=== PATIENT | male | born 1965 ===

== ENCOUNTER 2022-06-27 13:47 | Emergency (ER) | payer MEDICAID, SELFPAY ==
[2022-06-27 14:05] VITALS: BP 144/92; PULSE 82; RESP 18; TEMP 36.7; O2SAT 94; BMI 33.0
--- NOTE | 2022-06-27 14:06 | ED.DIZZY ---
HPI - Dizziness General Chief Complaint: General Medical Stated Complaint: Dizziness x1 week Time Seen by Provider: 06/27/22 17:47 Related Data Previous Rx's Medication Instructions Recorded blood-glucose meter #1 ea 06/27/22 metformin 500 mg tablet 500 mg PO BIDWMEAL #60 tabs 06/27/22 Allergies Allergy/AdvReac Type Severity Reaction Status Date / Time No Known Allergies Allergy Unverified 04/10/20 15:35 [No Known Allergies*] [facility] Social History Social History Advance Directives: No Advance Directives Information Provided: No Physical Exam Vital Signs: Vital Signs: Last Vital Signs Temp 98.3 F 06/27/22 19:30 Pulse 65 06/27/22 19:30 Resp 16 06/27/22 19:30 BP 153/97 H 06/27/22 19:30 Pulse Ox 96 06/27/22 19:30 O2 Del Method 06/27/22 19:30 BMI result Body Mass Index 33.0 Course Course Course Narrative: This is a rapid medical exam. Deferred additional HPI, ROS, PE to primary provider. 56 yo male healthy here with one month of dizziness when position changes, urinating frequently, drinking alot of juice. No focal neuro deficits. VSS. POC 420 in triage. No history of DM. Will need labs, EKG, UA. Medications Administered Discontinued Medications Generic Name Dose Route Start Last Admin Trade Name Rafaelq PRN Reason Stop Dose Admin Sodium Chloride 1,000 mls @ 999 mls/hr 06/27/22 17:35 06/27/22 18:58 Ns IV 06/27/22 18:35 Infused .Q1H1M STA Infusion Sodium Chloride 1,000 mls @ 999 mls/hr 06/27/22 17:48 06/27/22 18:58 Ns IV 06/27/22 18:48 999 mls/hr .Q1H1M ONE Administration Insulin Human Lispro 10 unit 06/27/22 17:48 06/27/22 18:58 Insulin Lispro 100 Unit/Ml 3 Ml Vial SUBCUT 06/27/22 17:49 10 unit ONCE ONE Administration Metformin HCl 500 mg 06/27/22 20:14 06/27/22 20:42 Metformin Hcl 500 Mg Tablet PO 06/27/22 20:15 500 mg ONCE ONE Administration MDM - Dizziness Lab Data Result diagrams: 06/27/22 14:28 06/27/22 14:28 Labs: Lab Results 06/27/22 06/27/22 06/27/22 Range/Units 14:09 14:28 14:28 WBC 8.5 (4.8-10.8) X10*3/uL RBC 5.55 (4.60-5.80) X10*6/uL Hgb 16.1 (14.0-18.0) g/dl Hct 45.3 (42.0-52.0) % MCV 81.6 (80.0-98.0) fL MCH 29.0 (27.0-33.0) pg MCHC 35.5 (31.0-36.0) g/dl RDW 11.4 (11.0-16.0) % Plt Count 329 (160-400) X10*3/uL MPV 10.8 (9.4-12.4) fL Immature Gran % (Auto) 0.1 (0.0-0.4) % Neut % (Auto) 49.5 (45-73) % Lymph % (Auto) 40.4 H (20-40) % [place] % (Auto) 7.3 (2-11) % Eos % (Auto) 1.9 (0-4) % Baso % (Auto) 0.8 (0-2) % Lymph # (Auto) 3.4 (1.2-4.9) X10*3/uL [place] # (Auto) 0.6 (0.1-1.2) X10*3/uL Eos # (Auto) 0.2 (0.0-0.4) X10*3/uL Baso # (Auto) 0.1 (0.0-0.2) X10*3/uL Abs Immat Gran (auto) 0.01 (0.00-0.03) X10*3/uL Absolute Neuts (auto) 4.2 (2.0-8.3) x10*3/uL Absolute Nucleated RBC 0.000 (0.0-0.012) X10*3/uL Nucleated RBC % (auto) 0.0 (0.0-0.2) /100WBC VBG pH (7.32-7.43) VBG pCO2 mmHg VBG pO2 mmHg VBG HCO3 (22-26) mmol/L VBG O2 Saturation % VBG Base Excess mmol/L Sodium 128 L (135-145) mmol/L Potassium 4.7 (3.3-5.1) mmol/L Chloride 98 (96-108) mmol/L Carbon Dioxide 24 (22-29) mmol/L Anion Gap 11 L (12-20) BUN 18 H (9-16) mg/dL Creatinine 1.10 (0.5-1.4) mg/dL Estim Creat Clear Calc 89.6 Estimated GFR > 60 POC Glucose 420 H* (60-115) mg/dL Random Glucose 405 H* (60-115) mg/dL Calcium 9.9 (8.4-10.2) mg/dL Magnesium 1.8 (1.6-2.6) mg/dL Total Bilirubin 0.7 (0.0-1.0) mg/dL Direct Bilirubin 0.2 (0.0-0.5) mg/dL AST 10 (5-37) U/L ALT 22 (0-40) U/L Alkaline Phosphatase 121 H (39-117) U/L Troponin I High Sens (<3.5-35.0) ng/L Total Protein 7.4 (6.5-8.0) g/dL Albumin 4.2 (3.5-5.0) g/dL Acetone, Qual (Negative) COVID-19 (ERNESITNE) (Negative) COVID-19 Clin Com 06/27/22 06/27/22 06/27/22 Range/Units 14:28 14:28 14:28 WBC (4.8-10.8) X10*3/uL RBC (4.60-5.80) X10*6/uL Hgb (14.0-18.0) g/dl Hct (42.0-52.0) % MCV (80.0-98.0) fL MCH (27.0-33.0) pg MCHC (31.0-36.0) g/dl RDW (11.0-16.0) % Plt Count (160-400) X10*3/uL MPV (9.4-12.4) fL Immature Gran % (Auto) (0.0-0.4) % Neut % (Auto) (45-73) % Lymph % (Auto) (20-40) % [place] % (Auto) (2-11) % Eos % (Auto) (0-4) % Baso % (Auto) (0-2) % Lymph # (Auto) (1.2-4.9) X10*3/uL [place] # (Auto) (0.1-1.2) X10*3/uL Eos # (Auto) (0.0-0.4) X10*3/uL Baso # (Auto) (0.0-0.2) X10*3/uL Abs Immat Gran (auto) (0.00-0.03) X10*3/uL Absolute Neuts (auto) (2.0-8.3) x10*3/uL Absolute Nucleated RBC (0.0-0.012) X10*3/uL Nucleated RBC % (auto) (0.0-0.2) /100WBC VBG pH (7.32-7.43) VBG pCO2 mmHg VBG pO2 mmHg VBG HCO3 (22-26) mmol/L VBG O2 Saturation % VBG Base Excess mmol/L Sodium (135-145) mmol/L Potassium (3.3-5.1) mmol/L Chloride (96-108) mmol/L Carbon Dioxide (22-29) mmol/L Anion Gap (12-20) BUN (9-16) mg/dL Creatinine (0.5-1.4) mg/dL Estim Creat Clear Calc Estimated GFR POC Glucose (60-115) mg/dL Random Glucose (60-115) mg/dL Calcium (8.4-10.2) mg/dL Magnesium (1.6-2.6) mg/dL Total Bilirubin (0.0-1.0) mg/dL Direct Bilirubin (0.0-0.5) mg/dL AST (5-37) U/L ALT (0-40) U/L Alkaline Phosphatase (39-117) U/L Troponin I High Sens < 3.5 (<3.5-35.0) ng/L Total Protein (6.5-8.0) g/dL Albumin (3.5-5.0) g/dL Acetone, Qual Negative (Negative) COVID-19 (ERNESTINE) Negative (Negative) COVID-19 Clin Com See Note 06/27/22 06/27/2206/27/22 Range/Units 14:33 17:20 17:50 WBC (4.8-10.8) X10*3/uL RBC (4.60-5.80) X10*6/uL Hgb (14.0-18.0) g/dl Hct (42.0-52.0) % MCV (80.0-98.0) fL MCH (27.0-33.0) pg MCHC (31.0-36.0) g/dl RDW (11.0-16.0) % Plt Count (160-400) X10*3/uL MPV (9.4-12.4) fL Immature Gran % (Auto) (0.0-0.4) % Neut % (Auto) (45-73) % Lymph % (Auto) (20-40) % [place] % (Auto) (2-11) % Eos % (Auto) (0-4) % Baso % (Auto) (0-2) % Lymph # (Auto) (1.2-4.9) X10*3/uL [place] # (Auto) (0.1-1.2) X10*3/uL Eos # (Auto) (0.0-0.4) X10*3/uL Baso # (Auto) (0.0-0.2) X10*3/uL Abs Immat Gran (auto) (0.00-0.03) X10*3/uL Absolute Neuts (auto) (2.0-8.3) x10*3/uL Absolute Nucleated RBC (0.0-0.012) X10*3/uL Nucleated RBC % (auto) (0.0-0.2) /100WBC VBG pH 7.49 H (7.32-7.43) VBG pCO2 31 mmHg VBG pO2 92 mmHg VBG HCO3 23 (22-26) mmol/L VBG O2 Saturation 98.0 % VBG Base Excess 1.4 mmol/L Sodium (135-145) mmol/L Potassium (3.3-5.1) mmol/L Chloride (96-108) mmol/L Carbon Dioxide (22-29) mmol/L Anion Gap (12-20) BUN (9-16) mg/dL Creatinine (0.5-1.4) mg/dL Estim Creat Clear Calc Estimated GFR POC Glucose 321 H 308 H (60-115) mg/dL Random Glucose (60-115) mg/dL Calcium (8.4-10.2) mg/dL Magnesium (1.6-2.6) mg/dL Total Bilirubin (0.0-1.0) mg/dL Direct Bilirubin (0.0-0.5) mg/dL AST (5-37) U/L ALT (0-40) U/L Alkaline Phosphatase (39-117) U/L Troponin I High Sens (<3.5-35.0) ng/L Total Protein (6.5-8.0) g/dL Albumin (3.5-5.0) g/dL Acetone, Qual (Negative) COVID-19 (ERNESTINE) (Negative) COVID-19 Clin Com 06/27/22 Range/Units 19:25 WBC (4.8-10.8) X10*3/uL RBC (4.60-5.80) X10*6/uL Hgb (14.0-18.0) g/dl Hct (42.0-52.0) % MCV (80.0-98.0) fL MCH (27.0-33.0) pg MCHC (31.0-36.0) g/dl RDW (11.0-16.0) % Plt Count (160-400) X10*3/uL MPV (9.4-12.4) fL Immature Gran % (Auto) (0.0-0.4) % Neut % (Auto) (45-73) % Lymph % (Auto) (20-40) % [place] % (Auto) (2-11) % Eos % (Auto) (0-4) % Baso % (Auto) (0-2) % Lymph # (Auto) (1.2-4.9) X10*3/uL [place] # (Auto) (0.1-1.2) X10*3/uL Eos # (Auto) (0.0-0.4) X10*3/uL Baso # (Auto) (0.0-0.2) X10*3/uL Abs Immat Gran (auto) (0.00-0.03) X10*3/uL Absolute Neuts (auto) (2.0-8.3) x10*3/uL Absolute Nucleated RBC (0.0-0.012) X10*3/uL Nucleated RBC % (auto) (0.0-0.2) /100WBC VBG pH (7.32-7.43) VBG pCO2 mmHg VBG pO2 mmHg VBG HCO3 (22-26) mmol/L VBG O2 Saturation % VBG Base Excess mmol/L Sodium (135-145) mmol/L Potassium (3.3-5.1) mmol/L Chloride (96-108) mmol/L Carbon Dioxide (22-29) mmol/L Anion Gap (12-20) BUN (9-16) mg/dL Creatinine (0.5-1.4) mg/dL Estim Creat Clear Calc Estimated GFR POC Glucose 263 H (60-115) mg/dL Random Glucose (60-115) mg/dL Calcium (8.4-10.2) mg/dL Magnesium (1.6-2.6) mg/dL Total Bilirubin (0.0-1.0) mg/dL Direct Bilirubin (0.0-0.5) mg/dL AST (5-37) U/L ALT (0-40) U/L Alkaline Phosphatase (39-117) U/L Troponin I High Sens (<3.5-35.0) ng/L Total Protein (6.5-8.0) g/dL Albumin (3.5-5.0) g/dL Acetone, Qual (Negative) COVID-19 (ERNESTINE) (Negative) COVID-19 Clin Com Discharge Plan Discharge Clinical Impression: Diabetes mellitus, new onset Patient Disposition: Home, Self-Care Instructions: Type 2 Diabetes in Adults: New Diagnosis (ED) Additional Instructions: Drink plenty of fluids Take medication as prescribed for diabetes Follow-up with PCP/biomedical engineering aide for diabetes management Check blood sugar at least twice daily it should be less than 200 See PCP/come to ED if blood sugar persistently high Prescriptions: New metformin 500 mg tablet 500 mg PO BIDWMEAL Qty: 60 0RF (DME) blood-glucose meter Kit See Rx Instructions .Route Qty: 1 0RF Rx Instructions: As directed Referrals: Ángel Cosme MD [Physician] - 1 week Kerri Rojas MD [Physician] - 1 week Interventions: ED Discharge Assessment Last Done: 06/27/22 20:44 Discharge Date/Time: 06/27/22 20:47
--- NOTE | 2022-06-27 14:08 | ECG_ITS ---
Test Reason : DIZZINESS Blood Pressure : / mmHG Vent. Rate : 081 BPM Atrial Rate : 081 BPM P-R Int : 136 ms QRS Dur : 072 ms QT Int : 362 ms P-R-T Axes : 057 041 065 degrees QTc Int : 420 ms Normal sinus rhythm Normal ECG No previous ECGs available Referred By: Marilyn Bahena Electronically Signed By:JOSHUA ZHU MD
[2022-06-27 14:15] LABS: Glucose, Whole Blood 420 mg/dL (60-115)
[2022-06-27 14:33] LABS: MANUAL DIFF FLAG NO
[2022-06-27 14:39] LABS: VBG Base Excess 1.4 mmol/L; VBG HCO3 23 mmol/L (22-26); VBG pCO2 31 mmHg; VBG pH 7.49 (7.32-7.43); VBG pO2 92 mmHg
[2022-06-27 14:39] LABS: Basophils Absolute Auto 0.1 X10*3/uL (0.0-0.2); Basophils Percent Auto 0.8 % (0-2); Eosinophils Absolute Auto 0.2 X10*3/uL (0.0-0.4); Eosinophils Percent Auto 1.9 % (0-4); Hematocrit 45.3 % (42.0-52.0); Hemoglobin 16.1 g/dl (14.0-18.0); Imm Gran Abs Auto 0.01 X10*3/uL (0.00-0.03); Imm Gran Pct Auto 0.1 % (0.0-0.4); Lymphocytes Absolute Auto 3.4 X10*3/uL (1.2-4.9); Lymphocytes Percent Auto 40.4 % (20-40); Mean Corpuscular HGB Conc 35.5 g/dl (31.0-36.0); Mean Corpuscular Volume 81.6 fL (80.0-98.0); Mean Platelet Volume 10.8 fL (9.4-12.4); Monocytes Absolute Auto 0.6 X10*3/uL (0.1-1.2); Monocytes Percent Auto 7.3 % (2-11); Neutrophils Absolute Auto 4.2 x10*3/uL (2.0-8.3); Neutrophils Percent Auto 49.5 % (45-73); Platelet Count 329 X10*3/uL (160-400); Red Blood Count 5.55 X10*6/uL (4.60-5.80); Red Cell Distribution Width 11.4 % (11.0-16.0); White Blood Count 8.5 X10*3/uL (4.8-10.8)
[2022-06-27 14:39] LABS: Venous Blood Gas Refer to POC result
[2022-06-27 14:49] LABS: IDNOW Serial# 16C4AD1C
[2022-06-27 14:50] LABS: COVID-19 Test Negative (Negative)
[2022-06-27 15:03] LABS: Acetone, serum QL Negative (Negative)
[2022-06-27 15:09] LABS: Alanine Aminotransferase 22 U/L (0-40); Albumin Level 4.2 g/dL (3.5-5.0); Alkaline Phosphatase 121 U/L (39-117); Anion Gap 11 (12-20); Aspartate Amino Transferase 10 U/L (5-37); Bilirubin Direct 0.2 mg/dL (0.0-0.5); Bilirubin Total 0.7 mg/dL (0.0-1.0); Blood Urea Nitrogen 18 mg/dL (9-16); Calcium 9.9 mg/dL (8.4-10.2); Carbon Dioxide 24 mmol/L (22-29); Chloride 98 mmol/L (96-108); Creatinine Clr Calc Pharmacy 89.6; Estimated Glomerular Filt Rate > 60; Glucose Random 405 mg/dL (60-115); Magnesium 1.8 mg/dL (1.6-2.6); Potassium 4.7 mmol/L (3.3-5.1); Sodium 128 mmol/L (135-145); Total Protein 7.4 g/dL (6.5-8.0)
[2022-06-27 16:21] LABS: Troponin-I High Sensitivity < 3.5 ng/L (<3.5-35.0)
[2022-06-27 17:17] VITALS: BP 127/90; PULSE 75; RESP 18; TEMP 36.1; O2SAT 100
[2022-06-27 17:24] LABS: Glucose, Whole Blood 321 mg/dL (60-115)
[2022-06-27] MEDS: 0.9 % Sodium Chloride 1,000 ML 999 ML IV ×2 (17:43→18:58)
[2022-06-27 17:54] LABS: Glucose, Whole Blood 308 mg/dL (60-115)
[2022-06-27] MEDS: Insulin Lispro 100 UNIT/ML 3 ML VIAL 10 UNIT SUBCUT (18:58)
[2022-06-27 19:30] VITALS: BP 153/97; PULSE 65; RESP 16; TEMP 36.8; O2SAT 96
[2022-06-27 19:40] LABS: Glucose, Whole Blood 263 mg/dL (60-115)
[2022-06-27] MEDS: metFORMIN HCl 500 MG TABLET PO (20:42)
== END 2022-06-27 20:47 | disposition home or self-care (01) ==
PROVIDERS: Nurse Practitioner Family; Emergency Provider Internal Medicine
DX: R42 Dizziness and giddiness (principal); E11.9 Type 2 diabetes mellitus without complications; Z20.822 Contact with and (suspected) exposure to COVID-19; Z79.899 Other long term (current) drug therapy
CPT/HCPCS: 36415; 80048; 80076; 82009; 82803; 82947; 83735; 84484; 85025; 87635; 93005; 96360; 99284

== ENCOUNTER 2022-08-06 04:30 | Emergency (ER) | payer MEDICAID, SELFPAY ==
--- NOTE | ~2022-08-06 | XR_ITS ---
EXAMINATION: XR SHOULDER, RIGHT CLINICAL INFORMATION: Pain COMPARISON: None TECHNIQUE: Four views of the right shoulder. FINDINGS: No fracture or dislocation. The glenohumeral joint is well aligned. Mild narrowing of the joint space with small osteophytes. The acromioclavicular joint is well aligned with moderate hypertrophic degenerative change. The visualized lung is clear. The visualized ribs are intact. XR/XR shoulder RT min 2V IMPRESSION: Mild to moderate degenerative changes of the right shoulder.
[2022-08-06 04:37] VITALS: BP 150/97; PULSE 102; RESP 16; TEMP 37; O2SAT 94; BMI 35.9
[2022-08-06 04:47] VITALS: BP 159/100; PULSE 87; RESP 16; TEMP 37.2; O2SAT 97
--- NOTE | 2022-08-06 04:48 | ECG_ITS ---
Test Reason : EXTREMITY PAIN Blood Pressure : / mmHG Vent. Rate : 091 BPM Atrial Rate : 091 BPM P-R Int : 140 ms QRS Dur : 068 ms QT Int : 354 ms P-R-T Axes : 036 009 058 degrees QTc Int : 435 ms Normal sinus rhythm Normal ECG When compared with ECG of 27-JUN-2022 14:16, No significant change was found Referred By: More Hui Electronically Signed By:Fred Magaña
--- NOTE | 2022-08-06 04:51 | ED.EXTPRO ---
HPI - Extremity Problem General Chief complaint: Extremity Problem Stated complaint: R Shoulder pain Time Seen by Provider: 08/06/22 04:35 History of Present Illness HPI Narrative: Patient is a 56-year-old male presents today with having right shoulder pain. The shoulder pain happened this morning. Patient woke up had the pain. There is no trauma. The pain is specially worse with movement of the right shoulder. No pain on movement of the left shoulder. There is no shortness of breath there is no diaphoresis. Patient claims he is borderline diabetic. No history of hypertension, high cholesterol, smoking, CA. No history of blood clots no leg swelling. The pain is sharp. He did not take any medication for the pain. He is from home. No travel history. Some blood thinners Related Data Previous Rx's Medication Instructions Recorded blood-glucose meter #1 ea 06/27/22 metformin 500 mg tablet 500 mg PO BIDWMEAL #60 tabs 06/27/22 Allergies Allergy/AdvReac Type Severity Reaction Status Date / Time No Known Allergies Allergy Verified 08/06/22 04:37 [No Known Allergies*] Review of Systems Review of Systems: Positive right shoulder pain PMFSH Past Medical History Attestation statement: The following information was validated with the patient. Social History Social History Advance Directives: No Advance Directives Information Provided: Yes Physical Exam Vital Signs: Vital Signs: Last Vital Signs Temp 98.9 F 08/06/22 04:47 Pulse 90 08/06/22 05:30 Resp 16 08/06/22 05:30 BP 140/92 H 08/06/22 05:30 Pulse Ox 97 08/06/22 04:47 O2 Del Method 08/06/22 04:47 BMI result Body Mass Index 35.9 Appearance: Alert. Oriented X3. No acute distress. Eyes: Pupils equal, round and reactive to light. ENT: Pharynx normal. Neck: Normal inspection. Neck supple. No lymph nodes noted. No crepitus CVS: Normal heart rate and rhythm. Pulses normal. Normal S1 and S2 Respiratory: No respiratory distress. Breath sounds normal. No Wheezing. No rales Abdomen: Soft and nontender. No rigidity. No distention. good BS x4 Skin: Skin warm and dry. Normal skin color. Normal skin turgor. Extremities: No lower extremity edema. Neurovascular intact to all extremities. No Lacerations. There is no deformities noted in the right shoulder. Movement distally at the wrist at the elbow at the hands are all intact skin is intact. Examination of the shoulder showed sensation over the axillary nerve intact movement of the shoulder both abduction adduction causes slight pain. Patient is still able to move it. Movement reproduces the symptoms. Neuro: Oriented X 3. No motor deficit. No sensory deficit. Moving all extermities. No slurred speech Medical Decision Making Differential Diagnosis Fracture, sprain, musculoskeletal causes of shoulder pain., cardiac causes of shoulder pain. We will go ahead and get an EKG. Patient's history knots anonymous with ACS. No history of hypertension high cholesterol, smoking, mi. Positive history of diabetes. Patient's pain is atypical for ACS. It is sharp. Unlikely this is secondary to CAD. History not consistent with pulmonary emboli. Patient's x-ray showed no evidence of fracture. Consistent with having degenerative joint disease. Likely the cause of patient's pain. Patient's sugar however was elevated at 360. Will have patient closely follow-up with his physician. Patient is asymptomatic from the sugar. Blood pressure is elevated. Patient is due for his morning medications. He is in stable condition. Lab Data MDM Lab Attestation statement: I reviewed the patient's lab results. Labs: Lab Results 08/06/22 Range/Units 05:18 POC Glucose 362 H* (60-115) mg/dL Independent Interpretation I performed an independent interpretation of an: EKG Interpretation: Patient's EKG showed a sinus pattern heart rate is 90 CO QRS QT within normal limits is no acute ST segment elevation. Not consistent with ACS. Discharge Plan Discharge Clinical Impression: Diabetes mellitus, Acute hyperglycemia Patient Disposition: Home, Self-Care Instructions: Diabetic Hyperglycemia (ED), Arthritis (ED), Diabetes and Nutrition (ED), Type 2 Diabetes Management for Adults (ED) Prescriptions: No Action metformin 500 mg tablet 500 mg PO BIDWMEAL Qty: 60 0RF (DME) blood-glucose meter Kit See Rx Instructions .Route Qty: 1 0RF Rx Instructions: As directed Referrals: Physician,None [Primary Care Provider] - 2 days
[2022-08-06 05:23] LABS: Glucose, Whole Blood 362 mg/dL (60-115)
[2022-08-06 05:30] VITALS: BP 140/92; PULSE 90; RESP 16
--- OUTSIDE RECORDS SUMMARY | 2022-08-06 05:30 | XMS_ITS | Continuity of Care Document ---
:1965 Author Organization [address], [address] [place] [address]- Care Team Providers Name Role Phone Not on Staff, PCP Primary Care Physician Unavailable Encounter [facility] [place] Date(s): 08/14/21 - 09/13/[address], [address] [place], [place] [address] Allergies, Adverse Reactions, Alerts No Known Allergies Medications Zofran ODT 4 mg oral tablet, disintegrating 1 tablet = 4 mg, By Mouth, Every 8 hours, PRN Nausea & Vomiting, # 10 tablet, 0 Refills, Maintenance, 10/01/19 18:13:00 EDT, Tablet, [id number], 104.3, kg, 10/01/19 17:01:00 EDT, Dry Weight Start Date: 10/01/19 Status: Ordered
--- OUTSIDE RECORDS SUMMARY | 2022-08-06 05:30 | XMS_ITS | Continuity of Care Document ---
:1965 Author Organization [facility] Address [address] [place] [address]- Care Team Providers Name Role Phone Not on Staff, PCP Primary Care Physician Unavailable Encounter [facility] [place] Date(s): 10/01/19 - 10/01/19 [facility] [address] [place] [id number] [facility] Encounter Diagnosis Vomiting and diarrhea (Final) - 10/01/19 Discharge Disposition: A-D/C Home Attending Physician: Jamel Ramires MD Admitting Physician: Jamel Ramires MD Referring Physician: Not on Staff, Referring MD Allergies, Adverse Reactions, Alerts Substance Reaction Severity Status NKA Active Medications Zofran ODT 4 mg oral tablet, disintegrating 1 tablet = 4 mg, By Mouth, Every 8 hours, PRN Nausea & Vomiting, # 10 tablet, 0 Refills, Maintenance, 10/01/19 18:13:00 EDT, Tablet, [id number], 104.3, kg, 10/01/19 17:01:00 EDT, Dry Weight Start Date: 10/01/19 Status: Ordered Vital Signs Most recent to oldest [Reference 1 2 3 Range]: Weight 104.3 kg 104.3 kg 104.3 kg (10/01/19 5:01 PM) (10/01/19 1:59 PM) (10/01/19 1:55 P M) Oxygen Saturation [94-100 %] 99 % 95 % 97 % (10/01/19 5:01 PM) (10/01/19 1:55 PM) (10/01/19 1:51 P M) Pulse Rate [55-90 bpm] 95 bpm 101 bpm 114 bpm *H* *H* *H* (10/01/19 5:01 PM) (10/01/19 1:55 PM) (10/01/19 1:51 P M) Blood Pressure [90-138/55-84 mm 152/86 mm Hg 151/101 mm Hg Hg] *H* *H* (10/01/19 5:01 PM) (10/01/19 1:55 PM) Respiratory Rate [16-30 br/min] 16 br/min 18 br/min (10/01/19 5:01 PM) (10/01/19 1:55 PM) Temperature [96.8-100.4 DegF] 98.9 DegF 98.4 DegF (10/01/19 5:01 PM) (10/01/19 1:55 PM) Mode of Delivery (Oxygen) Room air Room air (10/01/19 5:01 PM) (10/01/19 1:55 PM) Blood pressure sites Arm, left Arm, right (10/01/19 5:01 PM) (10/01/19 1:55 PM) Temperature Route Oral Oral (10/01/19 5:01 PM) (10/01/19 1:55 PM) Dry Weight 104.3 kg 104.3 kg 104.3 kg (10/01/19 5:01 PM) (10/01/19 1:59 PM) (10/01/19 1:55 P M) Weight Obtained Via Standing scale (10/01/19 1:55 PM) Dry Weight Obtained Via Standing scale (10/01/19 1:55 PM)
--- OUTSIDE RECORDS SUMMARY | 2022-08-06 05:30 | XMS_ITS | Continuity of Care Document ---
:1965 Author Organization [facility] Address [address] [place] [address]- Care Team Providers Name Role Phone Not on Staff, PCP Primary Care Physician Unavailable [place] [facility] [place](s[place] 09/09/20 - 09/09/20 [facility] [address] [place] [address]- Encounter Diagnosis COVID-19 (Final) - 09/09/20 COVID-19 (Final) - 09/09/20 Discharge Disposition: A-D/C Home Attending Physician: Marcelle Herman MD Admitting Physician: Marcelle Herman MD Referring Physician: Not on Staff, Referring [...] Dry Weight Start Date: 10/01/19 Status: Ordered Results Radiology Reports Exam Date Time Procedure Performing Provider Status 09/09/20 7:10 AM Chest Portable Jelani Hall (Parviz francis) Notes:(Chest Portable) Reason For Exam: Chest Pain;Other:RESULT: Chest Portable Examination: Portable chest performed on 09/09/2020. History: Dry cough. Findings: A frontal view of the chest is compared to a prior study dated 08/29/2018. The cardiac and mediastinal silhouettes are within normal limits. The lungs are clear. The osseous and soft tissue structures are unremarkable. IMPRESSION: There is no acute cardiopulmonary disease. WSN: [id number] Ordering Physician: Dmitry Alexis Dictated By: Nabila Macedo MD Dictated Date/Time: 09/09/20 7:23 am Reviewed By: Nabila Macedo MD Signed By: Nabila Macedo MD Signed Date/Time: 09/09/20 7:23 am Transcribed By: JUAN CARLOS Transcribed Date/Time: 09/09/20 7:22 am Vital Signs Most recent to oldest 1 2 3 [Reference Range]: Oxygen Saturation [94-100 %] 94 % 94 % 96 % (09/09/20 9:20 AM) (09/09/20 6:53 AM) (09/09/20 6:4 5 AM) Pulse Rate [55-90 bpm] 88 bpm 75 bpm 86 bpm (09/09/20 9:20 AM) (09/09/20 6:53 AM) (09/09/20 6:4 5 AM) Blood Pressure [90-138/55-84 mm 153/98 mm Hg 151/88 mm Hg Hg] *H* *H* (09/09/20 9:23 AM) (09/09/20 6:53 AM) Respiratory Rate [16-30 br/min] 20 br/min 18 br/min (09/09/20 6:53 AM) (09/09/20 6:45 AM) Temperature [96.8-100.4 DegF] 97.9 DegF 98.0 DegF (09/09/20 9:23 AM) (09/09/20 6:53 AM) Mode of Delivery (Oxygen) Room air Room air Room a ir (09/09/20 9:20 AM) (09/09/20 6:53 AM) (09/09/20 6:4 5 AM) Blood pressure sites Arm, right (09/09/20 6:53 AM) Temperature Route Oral Oral (09/09/20 9:23 AM) (09/09/20 6:53 AM)
--- OUTSIDE RECORDS SUMMARY | 2022-08-06 05:30 | XMS_ITS | Continuity of Care Document ---
:1965 Author Organization [facility] Address Unavailable , Care Team Providers Name Role Phone Not on Staff, PCP Primary Care Physician Unavailable [place] [facility] [place] 08/[place]/21 [facility] Attending Physician: Gianfranco Jacob Admitting Physician: Gianfranco Jacob Referring Physician: Gianfranco Jacob Allergies, Adverse Reactions, Alerts No Known Allergies Medications Zofran ODT 4 mg oral tablet, disintegrating 1 tablet = 4 mg, By Mouth, Every 8 hours, PRN Nausea & Vomiting, # 10 tablet, 0 Refills, Maintenance, 10/01/19 18:13:00 EDT, Tablet, [id number], 104.3, kg, 10/01/19 17:01:00 EDT, Dry Weight Start Date: 10/01/19 Status: Ordered
--- OUTSIDE RECORDS SUMMARY | 2022-08-06 05:31 | XMS_ITS | Continuity of Care Document ---
:1965 Author Organization [facility] Address [address] [place] [address]- Care Team Providers Name Role Phone Not on Staff, PCP Primary Care Physician Unavailable Encounter [facility] [place] Date(s): 07/30/21 - 07/30/21 [facility] [address] [place] [address]- Encounter Diagnosis Headache (Final) - 07/30/21 Discharge Disposition: A-D/C Home Attending Physician: Guillaume Ramires MD Admitting Physician: Guillaume Ramires MD Referring Physician: Not on Staff, [...] Exam Date Time Procedure Performing Provider Status 07/30/21 5:22 PM Chest Portable Nannette Jamil (Verified) Notes:(Chest Portable) Reason For Exam: Stroke;Other:RESULT: Chest Portable Examination: Portable chest performed on 07/30/2021. History: Headache and left-sided weakness. Findings: A frontal view of the chest is compared to a prior study dated 09/09/2020. The cardiac and mediastinal silhouettes are within normal limits. The lungs are clear. The osseous and soft tissue structures are unremarkable. IMPRESSION: There is no acute cardiopulmonary disease. WSN: [id number] Ordering Physician: Riaz Reyez Dictated By: Nabila Macedo MD Dictated Date/Time: 07/30/21 5:30 pm Reviewed By: Nabila Macedo MD Signed By: Nabila Macedo MD Signed Date/Time: 07/30/21 5:30 pm Transcribed By: JUAN CARLOS Transcribed Date/Time: 07/30/21 5:29 pm Vital Signs Most recent to oldest [Reference 1 2 3 Range]: Oxygen Saturation [94-100 %] 98 % 98 % 94 % (07/30/21 8:56 PM) (07/30/21 7:36 PM) (07/30/21 6:29 P M) Pulse Rate [55-90 bpm] 78 bpm 71 bpm 80 bpm (07/30/21 8:56 PM) (07/30/21 7:36 PM) (07/30/21 6:29 P M) Blood Pressure [90-138/55-84 mm 148/78 mm Hg 148/99 mm Hg 146/92 mm Hg Hg] *H* *H* *H* (07/30/21 8:56 PM) (07/30/21 7:36 PM) (07/30/21 6:29 P M) Respiratory Rate [16-30 br/min] 19 br/min 19 br/min 18 br/min (07/30/21 8:56 PM) (07/30/21 7:36 PM) (07/30/21 6:29 P M) Temperature [96.8-100.4 DegF] 97.6 DegF 98 DegF 97 .6 DegF (07/30/21 8:56 PM) (07/30/21 7:36 PM) (07/30/21 6:29 P M) Mode of Delivery (Oxygen) Room air Room air Room a ir (07/30/21 8:56 PM) (07/30/21 7:36 PM) (07/30/21 6:29 P M) Blood pressure sites Arm, left Arm, left Arm, left (07/30/21 8:56 PM) (07/30/21 7:36 PM) (07/30/21 6:29 P M) Temperature Route Oral Oral Oral (07/30/21 8:56 PM) (07/30/21 7:36 PM) (07/30/21 6:29 P M)
--- OUTSIDE RECORDS SUMMARY | 2022-08-06 05:31 | XMS_ITS | Continuity of Care Document ---
:1965 Author Organization [facility] Address [address] [place] [address]- Care Team Providers Name Role Phone Not on Staff, PCP Primary Care Physician Unavailable [place] [facility] [place]11[place]19 [facility] [address] [place] [id number] Encounter Diagnosis Pain of back and left lower extremity (Final) - 12/11/19 Discharge Disposition: A-D/C Home Attending Physician: Venus Clayton MD Admitting Physician: Venus Clayton MD Referring Physician: Not on Staff, Referring [...] Vital Signs Most recent to oldest [Reference Range]: 1 2 Weight 107 kg 107 kg (12/11/19 6:10 PM) (12/11/19 6:05 PM) Oxygen Saturation [94-100 %] 100 % 100 % (12/11/19 7:23 PM) (12/11/19 6:05 PM) Pulse Rate [55-90 bpm] 70 bpm 77 bpm (12/11/19 7:23 PM) (12/11/19 6:05 PM) Blood Pressure [90-138/55-84 mm Hg] 135/85 mm Hg 164/ 91 mm Hg (12/11/19 7:23 PM) *H* (12/11/19 6:05 PM) Respiratory Rate [16-30 br/min] 20 br/min 18 br/mi n (12/11/19 7:23 PM) (12/11/19 6:05 PM) Temperature [96.8-100.4 DegF] 97.8 DegF (12/11/19 6:05 PM) Mode of Delivery (Oxygen) Room air Room air (12/11/19 7:23 PM) (12/11/19 6:05 PM) Blood pressure sites Arm, right (12/11/19 6:05 PM) Temperature Route Oral (12/11/19 6:05 PM) Dry Weight 107 kg 107 kg (12/11/19 6:10 PM) (12/11/19 6:05 PM)
== END 2022-08-06 05:56 | disposition home or self-care (01) ==
PROVIDERS: Emergency Provider Emergency Medicine Emergency Medical Services
DX: E11.65 Type 2 diabetes mellitus with hyperglycemia (principal); M25.511 Pain in right shoulder; R07.89 Other chest pain; Z79.899 Other long term (current) drug therapy
CPT/HCPCS: 73030; 82947; 93005; 99283; 99284

== ENCOUNTER 2022-08-28 08:22 | Emergency (ER) | payer MEDICAID, SELFPAY ==
[2022-08-28 08:25] VITALS: PULSE 75; RESP 18; TEMP 36.7; O2SAT 99; BMI 35.4
--- NOTE | 2022-08-28 08:50 | ED_ITS ---
HPI - Back Pain/Injury General Chief Complaint: Back Pain/Injury Stated Complaint: back inj at work Time Seen by Provider: 08/28/22 08:37 Source: patient Mode of arrival: ambulatory Limitations: no limitations History of Present Illness HPI Narrative: 56 year old male patient presents to the ED with left lower back pain after picking up some cardboard boxes at work yesterday. Since yesterday he reports constant dull mid to left lower back pain 8 out of 10. He states the pain becomes sharp when getting up after sitting or laying back. Pain lessons with movement. He denies numbness, tingling and incontinence. No abd pain. He is able to ambulate without help. Denies taking anything for the pain. No allergies. Reports history of DM type 2. 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 Plans on going back to work on Tuesday. Wants something for the pain. Denies any fevers recent falls or trauma urinary bowel incontinence, history of IV drug use or any other symptoms complaints or concerns at this time. MD elicited complaint: back pain Pertinent past history: prior back pain Onset (ago): day(s) Timing: constant Severity: moderate Pain scale (0-10): 8 Quality: sharp and dull Location: lumbar spine and left lower back Radiation: none Exacerbating factors: movement Relieving factors: none Context: while lifting, turning/twisting and bending Associated symptoms: denies other symptoms Treatments prior to arrival: NSAIDS and acetaminophen Work related injury: Yes Related Data Previous Rx's Medication Instructions Recorded blood-glucose meter #1 ea 06/27/22 metformin 500 mg tablet 500 mg PO BIDWMEAL #60 tabs 06/27/22 cyclobenzaprine 10 mg tablet 10 mg PO Q8H #14 tabs 08/28/22 ketorolac 10 mg tablet 10 mg PO Q8H #14 tabs 08/28/22 Allergies Allergy/AdvReac Type Severity Reaction Status Date / Time No Known Allergies Allergy Verified 08/06/22 04:37 [No Known Allergies*] Review of Systems Review of Systems: Constitutional : No trauma, No Weight loss, No Fever, No Chills, ENT/Mouth : No Hearing loss, No Ear Pain, No Nasal Congestion, No Sinus Pain, No Hoarseness, No sore throat, No Rhinorrhea, No Swallowing Difficulty Cardiovascular : No Chest Pain, No SOB Respiratory : No Cough, No Dyspnea Gastrointestinal : No Nausea, No Vomiting, No Diarrhea, No abdominal Pain, No Hematochezia, No Melena Genitourinary : No Dysuria, No Urinary Frequency, No Hematuria, No Urinary or Bowel Incontinence/retention Musculoskeletal : + Back pain mid to left lower back, No neck pain, No joint stiffness, No joint swelling Skin : No Skin Lesions, No rash or signs of infection Neuro : No Weakness, No radiation, No Numbness, No Paresthesias, No headache, no loss of bowel or bladder incontinence, no saddle anesthesia Denies history of IV drug usage. Yes all other systems are reviewed and are negative [facility] Past Medical History Attestation statement: The following information was validated with the patient. Source: old records reviewed and nursing notes reviewed Social History Social History Advance Directives: No Advance Directives Information Provided: No Physical Exam Vital Signs: Vital Signs: Last Vital Signs Temp 98.0 F 08/28/22 08:25 Pulse 75 08/28/22 08:25 Resp 18 08/28/22 08:25 Pulse Ox 99 08/28/22 08:25 O2 Del Method 08/28/22 08:25 BMI result Body Mass Index 35.4 vital signs have been reviewed as normal and appeared to be correct. Blood pressure normal. Heart rate normal. Respiration rate normal. Temperature normal. Oxygen saturation normal. Appearance: Alert. Oriented X3. No acute distress. Head: Normal external exam. Normocephalic. Atraumatic. Eyes: PERRLA. EOMI. Conjunctiva and sclera normal. Eyelids normal. ENT: EAC normal. TM's Normal. Pharynx normal. Uvula midline. Moist mucous membranes. No trismus noted. No drooling noted. No muffled voice noted. Neck: Normal inspection. Neck supple. FROM. No adenopathy. Thyroid Normal. No meningeal signs. No neck mass noted. CVS: Normal heart rate and rhythm. Heart sound normal. No murmurs noted. Pulses normal throughout. Respiratory: No respiratory distress. Painless inspiration. Breath sounds normal. No wheezes/rales/rhonchi noted. Chest nontender. No accessory muscle usage noted or decreased air movement noted. Abdomen: Soft and nontender. Bowel sounds normal in all 4 quadrants. No distention noted. No organomegaly noted. No visible injury noted. Back: Mild- left para-spinal muscular tenderness in lumbar region. No CVA tenderness. Full range of motion noted. No obvious deformities, or edema. Full ROM in back and lower extremities. 5/5 strength hip extension/flexion, abduction, adduction. Mild Lumbar pain with hip flexion against resistance. Straight leg raise test negative on right; Straight leg raise test negative on left; Reflexes normal ankle and knee bilaterally; No rashes/lesion/induration/fluctuance or signs infection noted. Skin: Skin warm and dry. Normal skin color. Normal skin turgor. No rashes/lesions/lacerations noted. Extremities: No lower extremity edema. Extremities exhibit normal range of motion. Extremities nontender. Neuro: Oriented X 3. No motor deficit. No sensory deficit. Reflexes normal. Patient has a normal steady gait. Course Course Course Narrative: Pt c likely muscular pain, but could be herniated disc. Neuro exam shows no deficits. Not c/w AAA/epidural abscess/dissection.No high risk Hx (Incont, fever, immunosupp, recent surgery/LP, coag, signif trauma, wt loss, puls mass, hx/o Ca, TB, or IVDU) to warrant MRI/CT today. Not c/w Pyelo/UTI/kidney stone/spinal fx. Not cauda equina syndrome. Imaging not currently indicated. DC c meds and f/u Medications Administered Discontinued Medications Generic Name Dose Route Start Last Admin Trade Name Freq PRN Reason Stop Dose Admin Ketorolac Tromethamine 60 mg 08/28/22 08:48 08/28/22 09:19 Ketorolac Tromethamine 60 Mg/2 Ml Vial IM 08/28/22 08:49 60 mg ONCE ONE Administration Medical Decision Making Lab Data Labs: Lab Results 08/28/22 Range/Units 09:05 POC Glucose 344 H (60-115) mg/dL Discharge Plan Discharge Clinical Impression: Strain of lumbar region Patient Disposition: Home, Self-Care Instructions: Low Back Strain (ED), Lower Back Exercises (ED) Prescriptions: New ketorolac 10 mg tablet 10 mg PO Q8H Qty: 14 0RF Rx Instructions: First dose given in the ER by IM and patient tolerated well cyclobenzaprine 10 mg tablet 10 mg PO Q8H Qty: 14 0RF No Action metformin 500 mg tablet 500 mg PO BIDWMEAL Qty: 60 0RF (DME) blood-glucose meter Kit See Rx Instructions .Route Qty: 1 0RF Rx Instructions: As directed Referrals: Physician,None [Primary Care Provider] - 2 days (your pcp as needed ) Stand Alone Forms: Work/School Release Interventions: ED Discharge Assessment Last Done: 08/28/22 09:24 Discharge Date/Time: 08/28/22 09:26
[2022-08-28 09:09] LABS: Glucose, Whole Blood 344 mg/dL (60-115)
[2022-08-28] MEDS: Ketorolac Tromethamine 60 MG/2 ML VIAL IM (09:19)
== END 2022-08-28 09:26 | disposition home or self-care (01) ==
PROVIDERS: Emergency Provider Student in an Organized Health Care Education/Training Program
DX: S39.012A Strain of muscle, fascia and tendon of lower back, initial encounter (principal); X50.1XXA Overexertion from prolonged static or awkward postures, initial encounter; E11.9 Type 2 diabetes mellitus without complications; Y93.89 Activity, other specified; Y92.59 Other trade areas as the place of occurrence of the external cause; Y99.0 Civilian activity done for income or pay; Z79.84 Long term (current) use of oral hypoglycemic drugs
CPT/HCPCS: 82947; 96372; 99283; 99284; J1885

== ENCOUNTER 2022-09-01 15:53 | Emergency (ER) | payer MEDICAID, SELFPAY ==
[2022-09-01 16:03] VITALS: BP 132/95; PULSE 91; RESP 18; TEMP 36.6; O2SAT 96; BMI 35.4
--- NOTE | 2022-09-01 16:06 | ED.BACK ---
HPI - Back Pain/Injury General Chief Complaint: Back Pain/Injury Stated Complaint: back pain, work inj? here last week Time Seen by Provider: 09/01/22 16:07 Source: patient Mode of arrival: ambulatory Limitations: no limitations History of Present Illness HPI Narrative: 56-year-old male with a history of diabetes who presents to the emergency room with complaints of back pain. Patient reports he was seen here on August 28 after having a lifting injury the day before he was prescribed Flexeril and Toradol. Patient reports he did not berry picker the medications because he was feeling better the next day. Pain began again. There is no radiation of pain. No numbness, tingling, weakness in the legs. No bowel or bladder incontinence. No fevers or chills. Patient is ambulatory. Patient reports his plans to follow-up with occupational health tomorrow. Related Data Previous Rx's Medication Instructions Recorded blood-glucose meter #1 ea 06/27/22 metformin 500 mg tablet 500 mg PO BIDWMEAL #60 tabs 06/27/22 cyclobenzaprine 10 mg tablet 10 mg PO Q8H #14 tabs 08/28/22 ketorolac 10 mg tablet 10 mg PO Q8H #14 tabs 08/28/22 Allergies Allergy/AdvReac Type Severity Reaction Status Date / Time No Known Allergies Allergy Verified 08/06/22 04:37 [No Known Allergies*] Review of Systems Review of Systems: Yes all other systems are reviewed and are negative Constitutional: Constitutional: Reports no additional constitutional complaints, Denies body ache(s), Denies chills, Denies fever(s), Denies headache(s) and Denies weakness Eyes: Eyes: Reports no additional eye complaints and Denies change in vision ENT: Reports system reviewed and no additional complaints, except as documented, Denies dizziness, Denies headache(s), Denies nasal congestion, Denies nasal discharge and Denies neck pain Cardiovascular: Cardiovascular: Reports no additional cardiovascular complaints, Denies chest pain, Denies leg edema and Denies dyspnea Respiratory: Respiratory: Reports no additional respiratory complaints, Denies cough and Denies dyspnea Gastrointestinal: Gastrointestinal: Reports no additional gastrointestinal complaints, Denies abdominal pain, Denies diarrhea, Denies nausea and Denies vomiting Genitourinary: Genitourinary: Denies urinary incontinence Musculoskeletal: Musculoskeletal: Reports no additional musculoskeletal complaints, Reports back pain, Denies arthralgias, Denies joint swelling, Denies neck pain, Denies numbness and Denies tingling Integumentary/Breasts: Skin/Breast: Reports system reviewed and no additional complaints, except as docu and Denies rash Neurologic: Reports system reviewed and no additional complaints, except as documented, Denies Abnormal speech present, Denies dizziness, Denies headache(s), Denies numbness, Denies tingling and Denies weakness PMFSH Past Medical History Attestation statement: The following information was validated with the patient. Source: old records reviewed and nursing notes reviewed Social History Social History Advance Directives: No Advance Directives Information Provided: No Physical Exam Vital Signs: Vital Signs: Last Vital Signs Temp 98 F 09/01/22 16:03 Pulse 91 09/01/22 16:03 Resp 18 09/01/22 16:03 BP 132/95 H 09/01/22 16:03 Pulse Ox 96 09/01/22 16:03 O2 Del Method 09/01/22 16:03 BMI result Body Mass Index 35.4 Const: General: cooperative, healthy appearing, comfortable and no acute distress Orientation/consciousness: patient oriented x3 Limitations: no limitations HEENT: Head: Yes normal to inspection Ears: hearing grossly normal bilaterally General nose exam: Normal external nose present Face and sinus: Yes normal facial exam Mouth: Normal oral and palatal mucosa present Throat: Yes posterior oropharynx normal Eyes: General: appearance normal, both eyes and all related structures Pupils: Equal, round and reactive pupils present Neck: Neck: Yes normal visual inspection Chest: Chest palpation & inspection: normal inspection of the chest Resp: Effort & Inspection: normal respiratory effort Auscultation: clear to auscultation bilaterally Cardio: Rate: regular rate Rhythm: regular rhythm Peripheral pulses: Peripheral pulses 2+ throughout GI: Inspection: Yes normal to inspection Palpation (GI): Soft to palpation and nontender Auscultation: normal bowel sounds Back/Spine/Pelvis: Other: On exam there is tenderness over the lumbar soft tissue area on the right side which is worsened with flexion and extension of the spine. No midline tenderness, step-offs deformities. Thoracic/Lumbar Spine: thoracic and lumbar spine normal to inspection Skin: General skin exam: no rashes or lesions noted Neuro: General: patient oriented x3, no focal motor deficits and normal sensation to monofilament Cranial nerves: Yes CN's II-XII intact bilaterally, Yes Equal, round and reactive pupils present, Yes Bilaterally intact EOM present, Yes Nystagmus not present, Yes Normal facial strength present and Yes Midline tongue present Cognition (Neuro): normal cognition Speech: No Abnormal speech present Gait exam (Neuro): Normal gait present Motor exam (neuro): 5/5 motor strength present throughout Sensory Exam: Normal double simultaneous stimulation for sensation Deep tendon reflexes (DTR's): Right patellar reflex intensity grade: 2+ and Left patellar reflex intensity grade: 2+ Extrem: General: Yes normal to inspection Medical Decision Making Medical Decision Making MDM Narrative: 56-year-old male here with lower back pain after lifting injury which occurred on August 27 while working. Patient seen here August 28. Diagnosed with lumbar strain. Given prescriptions for Toradol and Flexeril with the patient has not started yet. Here with continued pain. On exam no neurological deficits or red flag symptoms. No midline tenderness, step-offs or deformities. Likely lumbar strain. Patient recommended to berry picker prescriptions for Flexeril and Toradol previously prescribed, follow-up with Occupational Health, avoid any heavy lifting or bending. Differential Diagnosis Differential Diagnoses: The differential diagnosis associated with the presentation includes Not c/w AAA/epidural abscess/dissection.No high risk Hx (Incont, fever, immunosupp, recent surgery/LP, coag, signif trauma, wt loss, puls mass, hx/o Ca, TB, or IVDU) to warrant MRI/CT today. Not c/w Pyelo/UTI/kidney stone/spinal fx. Not cauda equina syndrome. Tests considered The following testing was considered but not selected: imaging not warranted. No midline tenderness or history of injury or trauma. See MDM discussion. This was discussed with the patient Discharge Plan Discharge Clinical Impression: Strain of lumbar region Patient Disposition: Home, Self-Care Instructions: Acute Low Back Pain (ED) Additional Instructions: personal support worker the medications or prescribed 2 after last ER visit No heavy lifting or bending Gentle stretching Ice or heat to the affected area Follow-up with your occupational health for additional concerns Prescriptions: No Action metformin 500 mg tablet 500 mg PO BIDWMEAL Qty: 60 0RF (DME) blood-glucose meter Kit See Rx Instructions .Route Qty: 1 0RF Rx Instructions: As directed ketorolac 10 mg tablet 10 mg PO Q8H Qty: 14 0RF Rx Instructions: First dose given in the ER by IM and patient tolerated well cyclobenzaprine 10 mg tablet 10 mg PO Q8H Qty: 14 0RF Referrals: Physician,None [Primary Care Provider] - Stand Alone Forms: Work/School Release Interventions: ED Discharge Assessment Last Done: 09/01/22 16:32 Discharge Date/Time: 09/01/22 16:32
== END 2022-09-01 16:32 | disposition home or self-care (01) ==
PROVIDERS: Emergency Provider Emergency Medicine
DX: Z04.2 Encounter for examination and observation following work accident (principal); M54.50 Low back pain, unspecified; S39.012D Strain of muscle, fascia and tendon of lower back, subsequent encounter; X50.0XXD Overexertion from strenuous movement or load, subsequent encounter
CPT/HCPCS: 99282

== ENCOUNTER 2022-11-20 05:43 | Emergency (ER) | payer MEDICAID, SELFPAY ==
[2022-11-20 05:44] VITALS: BP 160/94; PULSE 68; RESP 20; TEMP 36.8; O2SAT 98; BMI 25.0
--- NOTE | 2022-11-20 06:32 | ED.GENADULT ---
HPI - General Adult General Chief complaint: Back Pain/Injury Stated complaint: back mary anne Time Seen by Provider: 11/20/22 06:30 Source: patient Mode of arrival: ambulatory Limitations: no limitations History of Present Illness HPI narrative: Patient is a 56 year old assigned male at with no reported medical history presenting to the emergency department today with back pain. Patient states that yesterday, after he played basketball with his kids, he began to have a sore back. Patient denies any dizziness, lightheadedness, abdominal pain, nausea, vomiting, fever, chills, blurry vision, double vision, loss of vision, chest pain, difficulty breathing, shortness of breath, night sweats, pain with urination, increased urinary frequency, increased urinary urgency, blood in his urine or stool, syncope or a near syncopal episode, recent trauma or falls, bowel incontinence, bladder incontinence, bowel retention, bladder retention, or any other complaints at this time. Onset (ago): day(s) (1) Location: back Radiation: non-radiation Severity: mild Severity scale (1-10): 2 Quality: aching and dull Pain Consistency: constant Relieving factors: none Exacerbating factors: none Associated symptoms: denies other symptoms Treatments prior to arrival: none Related Data Previous Rx's Medication Instructions Recorded blood-glucose meter #1 ea 06/27/22 metformin 500 mg tablet 500 mg PO BIDWMEAL #60 tabs 06/27/22 cyclobenzaprine 10 mg tablet 10 mg PO Q8H #14 tabs 08/28/22 ketorolac 10 mg tablet 10 mg PO Q8H #14 tabs 08/28/22 cyclobenzaprine 5 mg tablet 5 mg PO TID PRN muscle spasm 7 11/20/22 days #21 tabs naproxen 500 mg tablet 500 mg PO BID 7 days #14 tabs 11/20/22 Allergies Allergy/AdvReac Type Severity Reaction Status Date / Time No Known Allergies Allergy Verified 08/06/22 04:37 [No Known Allergies*] Review of Systems Constitutional: Constitutional: Reports no additional constitutional complaints, Denies chills, Denies fever(s) and Denies night sweats Eyes: Eyes: Reports no additional eye complaints, Denies blurry vision, Denies change in vision, Denies diplopia, Denies eye discharge, Denies loss of vision and Denies eye pain ENT: Denies dizziness Cardiovascular: Cardiovascular: Reports no additional cardiovascular complaints, Denies chest pain, Denies lightheadedness, Denies Loss of Consciousness and Denies dyspnea Respiratory: Respiratory: Reports no additional respiratory complaints and Denies dyspnea Gastrointestinal: Gastrointestinal: Reports no additional gastrointestinal complaints, Denies abdominal pain, Denies melena, Denies hematochezia, Denies change in bowel habits and Denies change in stool character Genitourinary: Genitourinary: Reports no additional male genitourinary complaints, Denies hematuria, Denies oliguria, Denies difficulty urinating, Denies dysuria, Denies urinary frequency, Denies urinary hesitancy, Denies urinary incontinence and Denies urinary urgency Musculoskeletal: Musculoskeletal: Reports no additional musculoskeletal complaints, Reports back pain, Denies numbness and Denies tingling Neurologic: Denies dizziness, Denies loss of vision, Denies numbness and Denies tingling Psychiatric: Psychiatric: Reports no additional psychiatric complaints Endocrine: Endocrine: Reports no additional endocrine complaints Hematologic/Lymphatic: Hematologic/Lymphatic: Reports no additional hematologic/lymphatic complaints Allergic/Immunologic: Allergic/Immunologic: Reports no additional allergic/immunologic complaints PMFSH Past Medical History Attestation statement: The following information was validated with the patient. Source: old records reviewed and nursing notes reviewed Social History Social History Alcohol intake: current Alcohol intake frequency: holidays/special occasions only Alcohol type: beer Smoked in Last 30 Days: No Use of substances other than those prescribed or required for medical reasons: No Advance Directives: No Advance Directives Information Provided: Yes Physical Exam ED Vital Signs: Vital Signs - 24 hr 11/20/22 05:44 Temperature 98.3 F Pulse Rate 68 Respiratory Rate 20 Blood Pressure 160/94 H Pulse Oximetry 98 Oxygen Delivery Method Room Air BMI result Body Mass Index 25.0 Const General: cooperative, no acute distress, alert and awake Nutritional Appearance: well nourished Orientation/consciousness: patient oriented x3 Limitations: no limitations HENMT Head: Yes normal to inspection and Yes atraumatic Ears: hearing grossly normal bilaterally and external ears normal General nose exam: Normal external nose present, no nasal discharge noted and no epistaxis Face and sinus: Yes normal facial exam, No abrasion and No laceration Mouth: Normal oral and palatal mucosa present, no drooling and no muffled voice Eyes General: appearance normal, both eyes and all related structures Periorbital: periorbital findings normal Eyelids: Yes eyelids normal Conjunctivae: conjunctivae normal Pupils: Equal, round and reactive pupils present EOM: EOMs intact bilaterally Neck Neck: Yes normal visual inspection, Yes full ROM and Yes no lymphadenopathy Chest Chest palpation & inspection: normal inspection of the chest Resp Effort & Inspection: normal respiratory effort and able to speak in complete sentences GI Inspection: Yes normal to inspection General: Yes no CVA tenderness Back/Spine/Pelvis Back: no CVA tenderness Cervical Spine: normal cervical lordosis and cervical ROM normal Thoracic/Lumbar Spine: thoracic and lumbar spine normal to inspection and thoraco-lumbar ROM normal Neuro General: patient oriented x3 and moves all extremities Cranial nerves: Yes Equal, round and reactive pupils present Cognition (Neuro): normal cognition Motor exam (neuro): 5/5 motor strength present throughout Sensory Exam: Normal double simultaneous stimulation for sensation Coordination: [id number] test normal Extrem General: Yes normal to inspection, Yes full ROM and Yes capillary refill normal Psych Appearance: grossly normal Mental Status: mental status grossly normal Affect: normal affect Attitude: cooperative Thought process: Normal thought process present Thought content: Normal thought content present Insight: Good insight present (Psych) Medical Decision Making Medical Decision Making MDM Narrative: Patient is a 56 year old assigned male at with no reported medical history presenting to the emergency department today with back pain. Patient's physical exam was unremarkable. I explained my physical exam findings to the patient. I answered all questions asked by the patient. Patient received IM Toradol and PO Flexeril which he stated helped his symptoms significantly. I stressed the importance of the patient taking his medication as prescribed. I stressed the importance of the patient following up with his primary care provider. I stressed the importance of the patient returning to the emergency department immediately if his symptoms were to worsen or if he were to develop any dizziness, shortness of breath, difficulty breathing, chest pain, blurry vision, loss of vision, nausea, vomiting, abdominal pain, fever, chills, back pain, or any other complaints. Patient verbalized agreement and understanding with this treatment plan and discharge. Differential Diagnosis Differential Diagnoses: The differential diagnosis associated with the presentation includes back pain Discharge Plan Discharge Clinical Impression: Back pain Patient Disposition: Home, Self-Care Instructions: Back Pain (ED) Additional Instructions: Follow up with your primary care provider. Return to the emergency department immediately if your symptoms worsen or if you develop any dizziness, shortness of breath, difficulty breathing, chest pain, blurry vision, loss of vision, nausea, vomiting, abdominal pain, fever, chills, back pain, or any other complaints. Prescriptions: New cyclobenzaprine 5 mg tablet 5 mg PO TID PRN (Reason: muscle spasm) 7 Days Qty: 21 0RF naproxen 500 mg tablet 500 mg PO BID 7 Days Qty: 14 0RF No Action metformin 500 mg tablet 500 mg PO BIDWMEAL Qty: 60 0RF (DME) blood-glucose meter Kit See Rx Instructions .Route Qty: 1 0RF Rx Instructions: As directed ketorolac 10 mg tablet 10 mg PO Q8H Qty: 14 0RF Rx Instructions: First dose given in the ER by IM and patient tolerated well cyclobenzaprine 10 mg tablet 10 mg PO Q8H Qty: 14 0RF Referrals: [facility] Family Medicine [Provider Group] (Call to establish and follow up with a primary care provider. If you already have a primary care provider, please follow up with them.) [facility] Primary Care, No [Provider Group] (Call to establish and follow up with a primary care provider. If you already have a primary care provider, please follow up with them.) [facility] Primary Care,Katherin [Provider Group] (Call to establish and follow up with a primary care provider. If you already have a primary care provider, please follow up with them.) Stand Alone Forms: Work/School Release Print Language: Yoruba
[2022-11-20] MEDS: Ketorolac Tromethamine 15 MG/ML VIAL IM (06:47)
[2022-11-20] MEDS: Cyclobenzaprine HCl 5 MG TABLET PO (06:47)
== END 2022-11-20 06:55 | disposition home or self-care (01) ==
PROVIDERS: Emergency Provider Emergency Medicine
DX: M54.9 Dorsalgia, unspecified (principal); E11.9 Type 2 diabetes mellitus without complications; Z79.84 Long term (current) use of oral hypoglycemic drugs; Z79.899 Other long term (current) drug therapy
CPT/HCPCS: 96372; 99284; J1885

== ENCOUNTER 2023-01-21 05:38 | Emergency (ER) | payer MEDICAID, SELFPAY ==
[2023-01-21 05:41] VITALS: BP 159/91; PULSE 72; RESP 16; TEMP 35.9; O2SAT 95; BMI 33.0
[2023-01-21 06:06] VITALS: BP 151/93; PULSE 67; RESP 12; O2SAT 93
--- NOTE | 2023-01-21 06:22 | ED.GENADULT ---
HPI - General Adult General Chief complaint: General Medical Stated complaint: Hip Pain Time Seen by Provider: 01/21/23 06:17 Source: patient Mode of arrival: ambulatory Limitations: no limitations History of Present Illness HPI narrative: The patient comes to the emergency room complaining of right-sided hip pain. Patient states that he woke up with hip pain. Denies any falls, no trauma. Patient able to walk, denies testicular pain. Denies flank pain or UTI symptoms. Related Data Previous Rx's Medication Instructions Recorded blood-glucose meter #1 ea 06/27/22 metformin 500 mg tablet 500 mg PO BIDWMEAL #60 tabs 06/27/22 cyclobenzaprine 10 mg tablet 10 mg PO Q8H #14 tabs 08/28/22 ketorolac 10 mg tablet 10 mg PO Q8H #14 tabs 08/28/22 cyclobenzaprine 5 mg tablet 5 mg PO TID PRN muscle spasm 7 11/20/22 days #21 tabs naproxen 500 mg tablet 500 mg PO BID 7 days #14 tabs 11/20/22 Allergies Allergy/AdvReac Type Severity Reaction Status Date / Time No Known Allergies Allergy Verified 08/06/22 04:37 [No Known Allergies*] Review of Systems Review of Systems: Constitutional : No Weight loss, No Fever, No Chills, No Night Sweats, No Fatigue, No Malaise ENT/Mouth : No Hearing loss, No Ear Pain, No Nasal Congestion, No Sinus Pain, No Hoarseness, No sore throat, No Rhinorrhea, No Swallowing Difficulty Eyes: No Eye Pain, No Swelling, No Redness, No Foreign Body, No Discharge, No Vision Changes Cardiovascular : No Chest Pain, No SOB, No Dyspnea on Exertion, No Orthopnea, No Edema, No Palpitations Respiratory : No Cough, No Sputum, No Wheezing, No Smoke Exposure, No Dyspnea Gastrointestinal : No Nausea, No Vomiting, No Diarrhea, No Constipation, No abdominal Pain, No Hematochezia, No Melena Genitourinary : no irregular bleeding, No Dysuria, No Urinary Frequency, No Hematuria, No Urinary Incontinence, No Urgency, No Flank Pain, No Urinary Flow Changes, No Hesitancy Musculoskeletal : Complaining of right-sided hip pain, No Myalgias, No Joint Swelling Skin : No Skin Lesions, No rash Neuro : No Weakness, No Numbness, No Paresthesias, No Loss of Consciousness, No Dizziness, No Headache Psych : No Anxiety/Panic, No Depression, No SI/HI/AH/VH, No Social Issues, Heme/Lymph: No Bruising, No Bleeding,No Lymphadenopathy Endocrine : No Polyuria, No Polydipsia, No Temperature Intolerance [facility] Social History Social History Alcohol intake: current Alcohol intake frequency: does not drink Alcohol type: beer Physical Exam ED Vital Signs: Vital Signs - 24 hr 01/21/23 05:41 01/21/23 06:06 Temperature 96.7 F L Pulse Rate 72 67 Respiratory Rate 16 12 Blood Pressure 159/91 H 151/93 H Pulse Oximetry 95 93 Oxygen Delivery Method Room Air Room Air BMI result Body Mass Index 33.0 Const Other: Appearance: Alert. Oriented X3. No acute distress. Eyes: Pupils equal, round and reactive to light. ENT: Pharynx normal. Neck: Normal inspection. Neck supple. No lymph nodes noted. No crepitus CVS: Normal heart rate and rhythm. Pulses normal. Normal S1 and S2 Respiratory: No respiratory distress. Breath sounds normal. No Wheezing. No rales Abdomen: Soft and nontender. No rigidity. No distention. Skin: Skin warm and dry. Normal skin color. Normal skin turgor. Extremities: No lower extremity edema. No Lacerations. No Rash the hip looks within normal limits, no erythema, no swelling, no ecchymosis. Patient able to flex extend and rotate the hip within normal limits. Patient able to bear weight Neuro: Oriented X 3. No motor deficit. No sensory deficit. Moving all extremities. No slurred speech. CN 2 through 12 grossly intact Psych: calm, cooperative, normal affect Medical Decision Making Medical Decision Making MDM Narrative: -I discussed the physical exam with the patient, patient likely has musculoskeletal muscle. Patient is able to bear weight, known history of trauma, no signs of infection, septic joint no suspected. Patient declined pain medication or a prescription, patient requesting a note for work Differential Diagnosis Differential Diagnoses: The differential diagnosis associated with the presentation includes (Bursitis, musculoskeletal pain) Discharge Plan Discharge Clinical Impression: Acute hip pain Patient Disposition: Home, Self-Care Instructions: Hip Pain (ED) Additional Instructions: Please follow-up with your primary care physician tomorrow. If you have any worsening or new symptoms, please return to the emergency room or call 911 Prescriptions: No Action metformin 500 mg tablet 500 mg PO BIDWMEAL Qty: 60 0RF (DME) blood-glucose meter Kit See Rx Instructions .Route Qty: 1 0RF Rx Instructions: As directed ketorolac 10 mg tablet 10 mg PO Q8H Qty: 14 0RF Rx Instructions: First dose given in the ER by IM and patient tolerated well cyclobenzaprine 10 mg tablet 10 mg PO Q8H Qty: 14 0RF cyclobenzaprine 5 mg tablet 5 mg PO TID PRN (Reason: muscle spasm) 7 Days Qty: 21 0RF naproxen 500 mg tablet 500 mg PO BID 7 Days Qty: 14 0RF Stand Alone Forms: Work/School Release
== END 2023-01-21 06:41 | disposition home or self-care (01) ==
PROVIDERS: Emergency Provider Emergency Medicine
DX: M25.551 Pain in right hip (principal); E11.9 Type 2 diabetes mellitus without complications; Z79.84 Long term (current) use of oral hypoglycemic drugs
CPT/HCPCS: 99282; 99284

== ENCOUNTER 2023-01-26 08:33 | Emergency (ER) | payer MEDICAID, SELFPAY ==
[2023-01-26 08:39] VITALS: BP 144/91; PULSE 79; RESP 18; TEMP 36.7; O2SAT 95; BMI 32.5
--- NOTE | 2023-01-26 09:26 | ED_ITS ---
HPI - Back Pain/Injury General Chief Complaint: Back Pain/Injury Stated Complaint: Back &R Hip Pain Time Seen by Provider: 01/26/23 09:12 Source: patient Mode of arrival: ambulatory Limitations: no limitations History of Present Illness HPI Narrative: 57-year-old male without significant medical history presents to the emergency department complaints of right-sided lower back pain that radiates into the right hip/buttock region, patient reports this has been going on for a week was seen in the emergency department for same type of pain. Patient reports that pain is worse with movement better at rest. Patient denies any trauma to the area, atraumatic in nature. Patient has had back pain in the past however has felt a little bit different. Denies fevers, chills, chest pain, shortness of breath, nausea, vomiting, abdominal pain, urinary/bowel incontinence/retention, saddle paresthesias, weakness. Ambulatory into room w/o difficulty Related Data Previous Rx's Medication Instructions Recorded blood-glucose meter #1 ea 06/27/22 metformin 500 mg tablet 500 mg PO BIDWMEAL #60 tabs 06/27/22 cyclobenzaprine 10 mg tablet 10 mg PO Q8H #14 tabs 08/28/22 ketorolac 10 mg tablet 10 mg PO Q8H #14 tabs 08/28/22 cyclobenzaprine 5 mg tablet 5 mg PO TID PRN muscle spasm 7 11/20/22 days #21 tabs naproxen 500 mg tablet 500 mg PO BID 7 days #14 tabs 11/20/22 cyclobenzaprine 10 mg tablet 10 mg PO BEDTIME PRN muscle spasm 01/26/23 #7 tabs ketorolac 10 mg tablet 10 mg PO TID PRN pain 5 days #15 01/26/23 tabs lidocaine 5 % topical patch 1 patch topical DAILY PRN pain #15 01/26/23 ea Allergies Allergy/AdvReac Type Severity Reaction Status Date / Time No Known Allergies Allergy Verified 01/26/23 08:42 [No Known Allergies*] Review of Systems Review of Systems: Constitutional : No Weight loss, No Fever, No Chills, ENT/Mouth : No Hearing loss, No Ear Pain, No Nasal Congestion, No Sinus Pain, No Hoarseness, No sore throat, No Rhinorrhea, No Swallowing Difficulty Cardiovascular : No Chest Pain, No SOB Respiratory : No Cough, No Dyspnea Gastrointestinal : No Nausea, No Vomiting, No Diarrhea, No abdominal Pain, No Hematochezia, No Melena Genitourinary : No Dysuria, No Urinary Frequency, No Hematuria, No Urinary Incontinence, Musculoskeletal : positive back pain Skin : No Skin Lesions, No rash Neuro : No Weakness, No Numbness, No Paresthesias, no loss of bowel or bladder incontinence, no saddle anesthesia Yes all other systems are reviewed and are negative [facility] Past Medical History Attestation statement: The following information was validated with the patient. Source: old records reviewed and nursing notes reviewed Social History Social History Alcohol intake: current Alcohol intake frequency: holidays/special occasions only Alcohol type: beer Smoked in Last 30 Days: No Use of substances other than those prescribed or required for medical reasons: No Advance Directives: No Advance Directives Information Provided: Yes Physical Exam Vital Signs: Vital Signs: Last Vital Signs Temp 98.0 F 01/26/23 08:39 Pulse 79 01/26/23 08:39 Resp 18 01/26/23 08:39 BP 144/91 H 01/26/23 08:39 Pulse Ox 95 01/26/23 08:39 O2 Del Method Room Air 01/26/23 08:39 BMI result Body Mass Index 32.5 Vital signs stable Appearance: Alert.? Oriented X3.? No acute distress.? Head: Normocephalic, atraumatic, no step-offs or deformities Eyes: Pupils equal, round and reactive to light.? ENT: Pharynx normal.? Neck: Normal inspection.? Neck supple.? CVS: Normal heart rate and rhythm.? Pulses normal.? Respiratory: No respiratory distress.? Breath sounds normal.? Abdomen: Soft and nontender.? Skin: Skin warm and dry.? Normal skin color.? Normal skin turgor.? Extremities: No lower extremity edema.? No calf ttp. 5/5 strength to bilateral upper and lower extremities Back: No midline tenderness, no C-spine tenderness, full range of motion, no CVA tenderness bilaterally + tenderness to palpation to right paraspinous muscles and into the right buttock region. No midline tenderness. Neuro: Oriented X 3.? No motor deficit.? No sensory deficit. CN 2-12 intact . Patient ambulatory with steady gait normal coordination. No saddle paresthesias. Course Reevaluation(s) Reevaluation #1: Patient to be discharged home with Toradol, cyclobenzaprine and Lidoderm patches. Will have him follow-up with [facility]. Educated patient on diagnosis and treatment plan, answered all question, patient verbalizes understanding. At this time patient will be discharged home, advised to return with new or worsening symptoms. Educated on worrisome signs and symptoms and when to return. At this time I feel comfortable discharge home. Time: 09:47 Medical Decision Making Medical Decision Making [facility] Narrative: 928 57 year old male presentts w/ R lower back pain with radiation to RLE X a week. Seen here for this same pain before was not dc home on meds. On Chart review was seen here on 01/21 w/ same complaint PE w/ R paraspinous tenderness to palpation, w/ radiation to r. buttocks. Neuro nonfocal. Ambulatory Likely sciatica versus lumbar radiculopathy. No signs of cord compression, cauda equina, epidural abscess. Other differentials include lumbago, herniated disc. Plan- pain control and dc w/ [facility] referal. Differential Diagnosis Differential Diagnoses: The differential diagnosis associated with the presentation includes Likely sciatica versus lumbar radiculopathy. No signs of cord compression, cauda equina, epidural abscess. Other differentials include lumbago, herniated disc. Admission/Observation Consideration of admission/observation: Escalation of care including admission/observation considered Not indicated Tests considered The following testing was considered but not selected: a traumatic no red flag sx, no indication for imaging. Core Measures AMI core measures followed: Yes Measure exclusions: not indicated Critical Care Time Critical Care Time Critical Care Time: No Discharge Plan Discharge Clinical Impression: Lumbar radiculopathy Patient Disposition: Home, Self-Care Instructions: Back Pain (ED), Lower Back Exercises (ED) Additional Instructions: Take your medications as prescribed. If you were prescribed antibiotics today, it is important that you take your medication to their entirety, do not skip any doses, do not finish them early. Follow-up with your primary care provider this week. Return to the emergency department with new or worsening symptoms. Such as fevers, chills, chest pain, shortness of breath, nausea, vomiting, dizziness, headache, vision changes, lethargy In case of emergency call 911 Toradol has been sent to your pharmacy, you tolerated this well in the department. Please take this as prescribed do not take this with ibuprofen, or other NSAIDs, do not mix this with alcohol. Side effects of this medication including increased risk for bleeding and possible kidney injury. Cyclobenzaprine as a muscle relaxer can make you tired, do not take this with alcohol, narcotics or with other sedatives. Prescriptions: New cyclobenzaprine 10 mg tablet 10 mg PO BEDTIME PRN (Reason: muscle spasm) Qty: 7 0RF ketorolac 10 mg tablet 10 mg PO TID PRN (Reason: pain) 5 Days Qty: 15 0RF lidocaine 5 % adhesive patch,medicated 1 patch topical DAILY PRN (Reason: pain) Qty: 15 0RF Rx Instructions: leave on most painful area for up to 12 hrs No Action metformin 500 mg tablet 500 mg PO BIDWMEAL Qty: 60 0RF (DME) blood-glucose meter Kit See Rx Instructions .Route Qty: 1 0RF Rx Instructions: As directed ketorolac 10 mg tablet 10 mg PO Q8H Qty: 14 0RF Rx Instructions: First dose given in the ER by IM and patient tolerated well cyclobenzaprine 10 mg tablet 10 mg PO Q8H Qty: 14 0RF cyclobenzaprine 5 mg tablet 5 mg PO TID PRN (Reason: muscle spasm) 7 Days Qty: 21 0RF naproxen 500 mg tablet 500 mg PO BID 7 Days Qty: 14 0RF Referrals: [facility] [Provider Group] - 2 days Physician,None [Primary Care Provider] - 2 days Stand Alone Forms: Work/School Release
== END 2023-01-26 09:55 | disposition home or self-care (01) ==
PROVIDERS: Emergency Provider Emergency Medicine
DX: M54.16 Radiculopathy, lumbar region (principal); E11.9 Type 2 diabetes mellitus without complications; Z79.84 Long term (current) use of oral hypoglycemic drugs; Z79.899 Other long term (current) drug therapy
CPT/HCPCS: 96372; 99283; 99284; J1885

== ENCOUNTER 2023-02-22 10:56 | Emergency (ER) | payer MEDICAID, SELFPAY ==
--- NOTE | ~2023-02-22 | XR_ITS ---
EXAMINATION: XR SHOULDER, LEFT CLINICAL INFORMATION: Left shoulder pain status post work. COMPARISON: None available. TECHNIQUE: AP external rotation, Grashey, scapular Y, and axillary views of the left shoulder. FINDINGS: Mild left acromioclavicular degenerative joint changes. Mild calcification of the distal rotator cuff with mild spurring at the insertion. The left glenohumeral joint is unremarkable. The left ribs are intact but is no acute fracture. The soft tissues are unremarkable. XR/XR shoulder LT min 2V IMPRESSION: 1. Mild left acromioclavicular degenerative joint changes. 2. Mild calcific tendinosis of the distal rotator cuff.
[2023-02-22 11:07] VITALS: BP 160/103; PULSE 78; RESP 16; TEMP 36; O2SAT 96; BMI 31.3
--- NOTE | 2023-02-22 11:11 | ED_ITS ---
HPI - Extremity Injury (Upper) General Chief Complaint: Extremity Injury, Upper Stated Complaint: L shoulder pain Time Seen by Provider: 02/22/23 11:35 Source: patient Limitations: no limitations History of Present Illness HPI narrative: Patient complaining of left shoulder pain increases with range of motion. Patient states he was at the gym lifting weights when he felt a pull in his left shoulder. Pain increases with range of motion. Patient denies any prior injuries to the left shoulder. Symptoms mild to moderate. Patient denies any trauma or falls. Patient is also requesting work note at this time pain 6/10. No other complaints this time. Related Data Previous Rx's Medication Instructions Recorded blood-glucose meter #1 ea 06/27/22 metformin 500 mg tablet 500 mg PO BIDWMEAL #60 tabs 06/27/22 cyclobenzaprine 10 mg tablet 10 mg PO Q8H #14 tabs 08/28/22 ketorolac 10 mg tablet 10 mg PO Q8H #14 tabs 08/28/22 cyclobenzaprine 5 mg tablet 5 mg PO TID PRN muscle spasm 7 11/20/22 days #21 tabs naproxen 500 mg tablet 500 mg PO BID 7 days #14 tabs 11/20/22 cyclobenzaprine 10 mg tablet 10 mg PO BEDTIME PRN muscle spasm 01/26/23 #7 tabs ketorolac 10 mg tablet 10 mg PO TID PRN pain 5 days #15 01/26/23 tabs lidocaine 5 % topical patch 1 patch topical DAILY PRN pain #15 01/26/23 ea methocarbamol 750 mg tablet 750 mg PO TID PRN muscle spasm #20 02/22/23 tabs naproxen 500 mg tablet 500 mg PO BID PRN pain #20 tabs 02/22/23 Allergies Allergy/AdvReac Type Severity Reaction Status Date / Time No Known Allergies Allergy Verified 01/26/23 08:42 [No Known Allergies*] Review of Systems Review of Systems: General: No fever, no chills ENT: No sore throat, no ear pain Cardiovascular: No chest pain, no peripheral edema, no shortness of breath Respiratory: No dyspnea, no sputum production, no cough Muscle skeletal: Left shoulder pain GI: no nausea vomiting, no diarrhea Skin: No rash Immunology: No immunocompromised Hematology: No bleeding, no bruising PMFSH Social History Social History Alcohol intake: current Alcohol intake frequency: holidays/special occasions only Alcohol type: beer Advance Directives: No Advance Directives Information Provided: No Physical Exam Vital Signs: Vital Signs: Last Vital Signs Temp 96.8 F 02/22/23 11:07 Pulse 78 02/22/23 11:07 Resp 16 02/22/23 11:07 BP 160/103 H 02/22/23 11:07 Pulse Ox 96 02/22/23 11:07 O2 Del Method Room Air 02/22/23 11:07 BMI result Body Mass Index 31.3 General appearance: Awake, alert, cooperative, in no acute distress Skin: Warm, dry, no rash Eyes: PERRL, EOMI, no icterus ENT: Oropharynx normal, uvula midline Neck: Soft supple full range of motion Pulmonary: Breath sounds clear to auscultation bilaterally, no accessory muscle use Cardiovascular: Regular rate and rhythm, no murmurs and rubs Extremities: left shoulder diffuse tenderness no crepitus decreased range of motion secondary to pain positive can test on the left. Symptoms increase with range of motion palpation. Neuro: Alert oriented x3, no focal deficit Psych: Normal affect Course Course Course Narrative: RME - 57 yo right hand dominant male presents to the ER for evaluation of left shoulder pain after lifting at the gym last night. Limited ROM. No falls. Plan: X-ray, [facility] Medical Decision Making Medical Decision Making [facility] Narrative: 57-year-old male complaining of left shoulder pain status post work out of the gym. X-ray of the left shoulder is pending at this time concerns for to rotator cuff injury versus left shoulder arthritis versus calcified tendinitis. x-ray shows mild calcified tendinitis distal aspect of the rotator cuff follow- up with orthopedics rest ice elevation will be recommended. Differential Diagnosis Left shoulder rotator cuff injury Left shoulder calcified tendinitis Left shoulder sprain Left shoulder strain Radiology Impression Discussion of test interpretation with radiology: I have reviewed the radiologist's reading. Radiologist Impression: [address] [address] XRay Report Signed Patient: Charles Moreno MR#: [id number] : 1965 Acct:[id number] Age/Sex: 57 / M ADM Date: 02/22/23 Loc: HO.ED Attending Dr: Ordering Physician: Beba Quintero Date of Service: 02/22/23 Procedure(s): XR shoulder LT min 2V Accession Number(s): [id number] cc: Beba Quintero~ EXAMINATION: XR SHOULDER, LEFT CLINICAL INFORMATION: Left shoulder pain status post work.? COMPARISON: None available.? TECHNIQUE: AP external rotation, Grashey, scapular Y, and axillary views of the left shoulder. FINDINGS: Mild left acromioclavicular degenerative joint changes. Mild calcification of the distal rotator cuff with mild spurring at the insertion. The left glenohumeral joint is unremarkable. The left ribs are intact but is no acute fracture. The soft tissues are unremarkable. XR/XR shoulder LT min 2V IMPRESSION: 1.? Mild left acromioclavicular degenerative joint changes. 2.? Mild calcific tendinosis of the distal rotator cuff. ? Dictated By: Sachin Estrada MD Signed By: <Electronically signed by Sachin Estrada MD in OV> 02/22/23 1158 DD/ 1127 TD/TT:? Drug Abuse Technician: GR Discharge Plan Discharge Clinical Impression: Calcifying tendinitis of left shoulder Patient Disposition: Home, Self-Care Instructions: Rotator Cuff Tendinitis (ED), Calcific Tendinitis (ED) Additional Instructions: X-ray shows calcified tendinitis of the left shoulder rotator cuff. Continue to passively stretch in range of motion in left shoulder sling for comfort Call orthopedics for follow-up medications as directed Prescriptions: New naproxen 500 mg tablet 500 mg PO BID PRN (Reason: pain) Qty: 20 0RF methocarbamol 750 mg tablet 750 mg PO TID PRN (Reason: muscle spasm) Qty: 20 0RF No Action metformin 500 mg tablet 500 mg PO BIDWMEAL Qty: 60 0RF (DME) blood-glucose meter Kit See Rx Instructions .Route Qty: 1 0RF Rx Instructions: As directed ketorolac 10 mg tablet 10 mg PO Q8H Qty: 14 0RF Rx Instructions: First dose given in the ER by IM and patient tolerated well cyclobenzaprine 10 mg tablet 10 mg PO Q8H Qty: 14 0RF cyclobenzaprine 5 mg tablet 5 mg PO TID PRN (Reason: muscle spasm) 7 Days Qty: 21 0RF naproxen 500 mg tablet 500 mg PO BID 7 Days Qty: 14 0RF cyclobenzaprine 10 mg tablet 10 mg PO BEDTIME PRN (Reason: muscle spasm) Qty: 7 0RF ketorolac 10 mg tablet 10 mg PO TID PRN (Reason: pain) 5 Days Qty: 15 0RF lidocaine 5 % adhesive patch,medicated 1 patch topical DAILY PRN (Reason: pain) Qty: 15 0RF Rx Instructions: leave on most painful area for up to 12 hrs Referrals: Jose M Devi MD [Physician] - ( calcified tendinitis rotator cuff left shoulder) Stand Alone Forms: Work/School Release
== END 2023-02-22 12:15 | disposition home or self-care (01) ==
PROVIDERS: Emergency Provider Emergency Medicine
DX: M75.32 Calcific tendinitis of left shoulder (principal); M25.512 Pain in left shoulder
CPT/HCPCS: 73030; 99282; 99283

== ENCOUNTER 2023-03-03 05:30 | Emergency (ER) | payer MEDICAID, SELFPAY ==
[2023-03-03 05:40] VITALS: BMI 29.5
[2023-03-03 05:47] VITALS: BP 153/84; PULSE 71; RESP 18; TEMP 36.5; O2SAT 92
--- NOTE | 2023-03-03 05:51 | PC.NURSE ---
Pt aox4 resting the bedside reporting left shoulder pain. Pain increase with ROM. Diagnosed with tendonosis on 02/22/2023 and rx pain medication. Pt has not been able to obtain these medications at the pharmacy. Pending physician evaluation.
--- NOTE | 2023-03-03 06:51 | ED_ITS ---
HPI - General Adult General Chief complaint: General Medical Stated complaint: shoulder pain Time Seen by Provider: 03/03/23 06:45 Source: patient Mode of arrival: ambulatory Limitations: no limitations History of Present Illness HPI narrative: Patient is a 57 year old assigned male at with a history of DM presenting to the emergency department today with chronic left shoulder pain. Patient states that he has been dealing with left shoulder pain for awhile but has not followed up with an orthopedic provider. Patient states that he needs a note for work yet. Patient denies any dizziness, lightheadedness, abdominal pain, nausea, vomiting, fever, chills, blurry vision, double vision, loss of vision, chest pain, difficulty breathing, shortness of breath, back pain, night sweats, pain with urination, increased urinary frequency, increased urinary urgency, blood in his urine or stool, syncope or a near syncopal episode, recent trauma or falls, bowel incontinence, bladder incontinence, bowel retention, bladder retention, or any other complaints at this time. Onset (ago): week(s) Location: left and upper extremity Severity: mild Severity scale (1-10): 2 Quality: aching and dull Pain Consistency: constant Relieving factors: none Exacerbating factors: movement Associated symptoms: denies other symptoms Treatments prior to arrival: none Related Data Previous Rx's Medication Instructions Recorded blood-glucose meter #1 ea 06/27/22 metformin 500 mg tablet 500 mg PO BIDWMEAL #60 tabs 06/27/22 cyclobenzaprine 10 mg tablet 10 mg PO Q8H #14 tabs 08/28/22 ketorolac 10 mg tablet 10 mg PO Q8H #14 tabs 08/28/22 cyclobenzaprine 5 mg tablet 5 mg PO TID PRN muscle spasm 7 11/20/22 days #21 tabs naproxen 500 mg tablet 500 mg PO BID 7 days #14 tabs 11/20/22 cyclobenzaprine 10 mg tablet 10 mg PO BEDTIME PRN muscle spasm 01/26/23 #7 tabs ketorolac 10 mg tablet 10 mg PO TID PRN pain 5 days #15 01/26/23 tabs lidocaine 5 % topical patch 1 patch topical DAILY PRN pain #15 01/26/23 ea methocarbamol 750 mg tablet 750 mg PO TID PRN muscle spasm #20 02/22/23 tabs naproxen 500 mg tablet 500 mg PO BID PRN pain #20 tabs 02/22/23 Allergies Allergy/AdvReac Type Severity Reaction Status Date / Time No Known Allergies Allergy Verified 01/26/23 08:42 [No Known Allergies*] Review of Systems Constitutional: Constitutional: Reports no additional constitutional complaints, Denies chills, Denies fever(s) and Denies night sweats Eyes: Eyes: Reports no additional eye complaints, Denies blurry vision, Denies change in vision, Denies diplopia, Denies eye discharge, Denies loss of vision and Denies eye pain ENT: Denies dizziness Cardiovascular: Cardiovascular: Reports no additional cardiovascular complaints, Denies chest pain, Denies lightheadedness, Denies Loss of Consciousness and Denies dyspnea Respiratory: Respiratory: Reports no additional respiratory complaints and Denies dyspnea Gastrointestinal: Gastrointestinal: Reports no additional gastrointestinal complaints, Denies abdominal pain, Denies melena, Denies hematochezia, Denies change in bowel habits and Denies change in stool character Genitourinary: Genitourinary: Reports no additional male genitourinary complaints, Denies hematuria, Denies oliguria, Denies difficulty urinating, Denies dysuria, Denies urinary frequency, Denies urinary hesitancy, Denies urinary incontinence and Denies urinary urgency Musculoskeletal: Musculoskeletal: Reports no additional musculoskeletal complaints, Denies numbness and Denies tingling Comments: left shoulder pain Neurologic: Denies dizziness, Denies loss of vision, Denies numbness and Denies tingling Psychiatric: Psychiatric: Reports no additional psychiatric complaints Endocrine: Endocrine: Reports no additional endocrine complaints Hematologic/Lymphatic: Hematologic/Lymphatic: Reports no additional hematologic/lymphatic complaints Allergic/Immunologic: Allergic/Immunologic: Reports no additional allergic/immunologic complaints [facility] Past Medical History Attestation statement: The following information was validated with the patient. Source: old records reviewed and nursing notes reviewed Social History Social History Alcohol intake: current Alcohol intake frequency: does not drink Alcohol type: beer Smoked in Last 30 Days: No Use of substances other than those prescribed or required for medical reasons: No Advance Directives: No Advance Directives Information Provided: Yes Physical Exam ED Vital Signs: Vital Signs - 24 hr 03/03/23 05:47 03/03/23 07:21 Temperature 97.7 F Pulse Rate 71 71 Respiratory Rate 18 18 Blood Pressure 153/84 H 154/94 H Pulse Oximetry 92 95 Oxygen Delivery Method Room Air Room Air BMI result Body Mass Index 29.5 Const General: cooperative, no acute distress, alert and awake Nutritional Appearance: well nourished Orientation/consciousness: patient oriented x3 Limitations: no limitations HENMT Head: Yes normal to inspection and Yes atraumatic Ears: hearing grossly normal bilaterally and external ears normal General nose exam: Normal external nose present, no nasal discharge noted and no epistaxis Face and sinus: Yes normal facial exam, No abrasion and No laceration Mouth: Normal oral and palatal mucosa present, no drooling and no muffled voice Eyes General: appearance normal, both eyes and all related structures Periorbital: periorbital findings normal Eyelids: Yes eyelids normal Conjunctivae: conjunctivae normal Pupils: Equal, round and reactive pupils present EOM: EOMs intact bilaterally Neck Neck: Yes normal visual inspection, Yes full ROM and Yes no lymphadenopathy Chest Chest palpation & inspection: normal inspection of the chest Resp Effort & Inspection: normal respiratory effort and able to speak in complete sentences GI Inspection: Yes normal to inspection Neuro General: patient oriented x3 and moves all extremities Cranial nerves: Yes Equal, round and reactive pupils present Cognition (Neuro): normal cognition Motor exam (neuro): 5/5 motor strength present throughout Sensory Exam: Normal double simultaneous stimulation for sensation Coordination: [id number] test normal Extrem General: Yes normal to inspection, Yes full ROM and Yes capillary refill normal Psych Appearance: grossly normal Mental Status: mental status grossly normal Affect: normal affect Attitude: cooperative Thought process: Normal thought process present Thought content: Normal thought content present Insight: Good insight present (Psych) Medical Decision Making Medical Decision Making MDM Narrative: Patient is a 57 year old assigned male at with a history of DM presenting to the emergency department today with chronic left shoulder pain. Patient's physical exam was unremarkable. I explained my physical exam findings to the patient. I answered all questions asked by the patient. I stressed the importance of the patient taking his medication as prescribed. I stressed the importance of the patient following up with his primary care provider and an orthopedic provider. I stressed the importance of the patient returning to the emergency department immediately if his symptoms were to worsen or if he were to develop any dizziness, shortness of breath, difficulty breathing, chest pain, blurry vision, loss of vision, nausea, vomiting, abdominal pain, fever, chills, back pain, or any other complaints. Patient verbalized agreement and understanding with this treatment plan and discharge. Differential Diagnosis Differential Diagnoses: The differential diagnosis associated with the presentation includes Chronic left shoulder pain Rotator cuff pain Rotator cuff injury Chronic Conditions Patient?s care impacted by: Diabetes Discharge Plan Discharge Clinical Impression: Chronic shoulder pain Patient Disposition: Home, Self-Care Instructions: Shoulder Pain (ED) Additional Instructions: Follow up with your primary care provider and an orthopedic provider. Return to the emergency department immediately if your symptoms worsen or if you develop any dizziness, shortness of breath, difficulty breathing, chest pain, blurry vision, loss of vision, nausea, vomiting, abdominal pain, fever, chills, back pain, or any other complaints. Prescriptions: No Action metformin 500 mg tablet 500 mg PO BIDWMEAL Qty: 60 0RF (DME) blood-glucose meter Kit See Rx Instructions .Route Qty: 1 0RF Rx Instructions: As directed ketorolac 10 mg tablet 10 mg PO Q8H Qty: 14 0RF Rx Instructions: First dose given in the ER by IM and patient tolerated well cyclobenzaprine 10 mg tablet 10 mg PO Q8H Qty: 14 0RF cyclobenzaprine 5 mg tablet 5 mg PO TID PRN (Reason: muscle spasm) 7 Days Qty: 21 0RF naproxen 500 mg tablet 500 mg PO BID 7 Days Qty: 14 0RF cyclobenzaprine 10 mg tablet 10 mg PO BEDTIME PRN (Reason: muscle spasm) Qty: 7 0RF ketorolac 10 mg tablet 10 mg PO TID PRN (Reason: pain) 5 Days Qty: 15 0RF lidocaine 5 % adhesive patch,medicated 1 patch topical DAILY PRN (Reason: pain) Qty: 15 0RF Rx Instructions: leave on most painful area for up to 12 hrs naproxen 500 mg tablet 500 mg PO BID PRN (Reason: pain) Qty: 20 0RF methocarbamol 750 mg tablet 750 mg PO TID PRN (Reason: muscle spasm) Qty: 20 0RF Referrals: [facility] [place]] (Call to establish and follow up with a primary care provider. If you already have a primary care provider, please follow up with them.) [facility] [facility] [place] (Call to establish and follow up with a primary care provider. If you already have a primary care provider, please follow up with them.) [facility] [Provider Group] (Call to establish and follow up with a primary care provider. If you already have a primary care provider, please follow up with them.) [facility] [place] Group] (Call to establish and follow up with an orthopedic provider.) Stand Alone Forms: Work/School Release Print Language: British
[2023-03-03 07:21] VITALS: BP 154/94; PULSE 71; RESP 18; O2SAT 95
--- NOTE | 2023-03-03 07:40 | PC.NURSE ---
pt AOX4, no SOB noted, lungs clear bilat and throughout, heart sounds regular, bowel sounds active x4 w/o tenderness. skin was intact, warm, pink and dry. no edema noted. c/o left shoulder pain 7/10 and the start of right shoulder pain 1/10. 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 arm strength is strong, ROM is limited d/t pain. L side more affected than than right. pt resting comfortably. MD helga hilliard.
[2023-03-03 09:52] VITALS: BP 146/92; PULSE 69; RESP 18; TEMP 36.6; O2SAT 97
== END 2023-03-03 09:54 | disposition home or self-care (01) ==
PROVIDERS: Emergency Provider Student in an Organized Health Care Education/Training Program
DX: M25.512 Pain in left shoulder (principal)
CPT/HCPCS: 99282; 99284

== ENCOUNTER 2023-05-09 05:18 | Emergency (ER) | payer MEDICAID, SELFPAY ==
--- NOTE | ~2023-05-09 | XR_ITS ---
EXAMINATION: XR CHEST CLINICAL INFORMATION: Productive cough COMPARISON: None available. TECHNIQUE: 2 views of the chest were obtained. FINDINGS: No significant abnormality is noted involving the heart, lungs, mediastinum, bony thorax or soft tissues. XR/XR chest 2V IMPRESSION: Unremarkable examination.
[2023-05-09 05:24] VITALS: BP 157/86; PULSE 90; RESP 18; TEMP 36.8; O2SAT 93; BMI 31.8
[2023-05-09 05:54] LABS: COVID-19 Test Negative (Negative); IDNOW Serial# BCCEAD1C
[2023-05-09 05:56] LABS: IDNOW Serial# 08D9AD1C; Influenza A Negative (Negative); Influenza B2 Negative (Negative)
--- NOTE | 2023-05-09 07:13 | ED_ITS ---
HPI - General Adult General Chief complaint: General Medical Stated complaint: Flu-like symptoms Time Seen by Provider: 05/09/23 07:09 Source: patient Mode of arrival: ambulatory Limitations: no limitations History of Present Illness HPI narrative: 57-year-old male who was otherwise healthy came in for evaluation of flu-like symptoms. Presented with a runny nose, sore throat, coughing, generalized body aches, g eneralized joint pain. No sick contacts, no recent travel. No CP, no SOB, no abdominal pain, no nausea, no vomiting, no diarrhea. Related Data Previous Rx's Medication Instructions Recorded blood-glucose meter #1 ea 06/27/22 metformin 500 mg tablet 500 mg PO BIDWMEAL #60 tabs 06/27/22 cyclobenzaprine 10 mg tablet 10 mg PO Q8H #14 tabs 08/28/22 ketorolac 10 mg tablet 10 mg PO Q8H #14 tabs 08/28/22 cyclobenzaprine 5 mg tablet 5 mg PO TID PRN muscle spasm 7 11/20/22 days #21 tabs naproxen 500 mg tablet 500 mg PO BID 7 days #14 tabs 11/20/22 cyclobenzaprine 10 mg tablet 10 mg PO BEDTIME PRN muscle spasm 01/26/23 #7 tabs ketorolac 10 mg tablet 10 mg PO TID PRN pain 5 days #15 01/26/23 tabs lidocaine 5 % topical patch 1 patch topical DAILY PRN pain #15 01/26/23 ea methocarbamol 750 mg tablet 750 mg PO TID PRN muscle spasm #20 02/22/23 tabs naproxen 500 mg tablet 500 mg PO BID PRN pain #20 tabs 02/22/23 Allergies Allergy/AdvReac Type Severity Reaction Status Date / Time No Known Allergies Allergy Verified 01/26/23 08:42 [No Known Allergies*] Review of Systems Review of Systems: All other systems are reviewed and are negative Constitutional: Reports as per HPI and Reports no additional constitutional complaints Eyes: Reports as per HPI and Reports no additional eye complaints Reports system reviewed and no additional complaints, except as documented Cardiovascular: Reports as per HPI and Reports no additional cardiovascular complaints Respiratory: Reports as per HPI and Reports no additional respiratory complaints Gastrointestinal: Reports as per HPI and Reports no additional gastrointestinal complaints Genitourinary: Reports no additional female genitourinary complaints Musculoskeletal: Reports no additional musculoskeletal complaints Skin/Breast: Reports system reviewed and no additional complaints, except as docu Psychiatric: Reports no additional psychiatric complaints Endocrine: Reports no additional endocrine complaints Hematologic/Lymphatic: Reports no additional hematologic/lymphatic complaints Allergic/Immunologic: Reports no additional allergic/immunologic complaints Reports system reviewed and no additional complaints, except as documented and Reports Abnormal speech present [facility] Social History Social History Alcohol intake: current Alcohol intake frequency: does not drink Alcohol type: beer Advance Directives: No Advance Directives Information Provided: Yes Physical Exam ED Vital Signs: Vital Signs - 24 hr 05/09/23 05:24 Temperature 98.2 F Pulse Rate 90 Respiratory Rate 18 Blood Pressure 157/86 H Pulse Oximetry 93 Oxygen Delivery Method Room Air BMI result Body Mass Index 31.8 Vital signs have been reviewed and appear to be correct. Blood pressure elevated. Heart rate normal. Respiratory rate normal. Temperature normal. Oxygen saturation normal. Appearance: Alert. Oriented X3. No acute distress. Head: Normal external exam. Normocephalic. Atraumatic. No Bryant signs noted. No raccoon eyes noted Eyes: PERRLA. EOMI. Conjunctiva and sclera normal. Eyelids normal. ENT: TM's Normal. Pharynx normal. Uvula midline. Moist mucous membranes. No trismus noted. No drooling noted. No muffled voice noted. Neck: Normal inspection. Neck supple. FROM. No adenopathy. Thyroid Normal. No meningeal signs. No neck mass noted. CVS: Normal heart rate and rhythm. Heart sound normal. No murmurs noted. Pulses normal throughout. Respiratory: No respiratory distress. Painless inspiration. Breath sounds normal. No wheezes/rales/rhonchi noted. Chest nontender. No accessory muscle usage noted or decreased air movement noted. Abdomen: Soft and nontender. Bowel sounds normal in all 4 quadrants. No distention noted. No organomegaly noted. No visible injury noted. Back: No CVA tenderness. Full range of motion noted. Skin: Skin warm and dry. Normal skin color. Normal skin turgor. No rashes/lesions/lacerations noted. Extremities: No lower extremity edema. Extremities exhibit normal range of motion. Extremities nontender. Neuro: Oriented X 3. Cranial nerve exam: II-XII are grossly intact No motor deficit. No sensory deficit. Reflexes normal. Course Reevaluation(s) Reevaluation #1: Viral syndrome, encouraged to drink plenty of fluids use NSAIDs if needed for fever or body ache. Time: 07:14 Medical Decision Making Differential Diagnosis Differential Diagnoses: The differential diagnosis associated with the presentation includes (COVID-19 infection, influenza, pneumonia, pneumothorax, pleural effusion.) Admission/Observation Consideration of admission/observation: Escalation of care including admission/observation considered Lab Data MDM Lab Attestation statement: I reviewed the patient's lab results. Labs: Lab Results 05/09/23 Range/Units 05:34 COVID-19 ([facility]) Negative (Negative) COVID-19 Clin Com See Note Influenza Type A ([place]) Negative (Negative) Influenza Type B ([place]) Negative (Negative) Influenza A & B Note See Note Independent Interpretation I performed an independent interpretation of an: Plain X-Ray (Chest: No acute intrathoracic pathology) Radiology Impression Discussion of test interpretation with radiology: I have reviewed the radiologist's reading. Discharge Plan Discharge Clinical Impression: Acute viral syndrome Patient Disposition: Home, Self-Care Instructions: Viral Syndrome (ED) Prescriptions: No Action metformin 500 mg tablet 500 mg PO BIDWMEAL Qty: 60 0RF (DME) blood-glucose meter Kit See Rx Instructions .Route Qty: 1 0RF Rx Instructions: As directed ketorolac 10 mg tablet 10 mg PO Q8H Qty: 14 0RF Rx Instructions: First dose given in the ER by IM and patient tolerated well cyclobenzaprine 10 mg tablet 10 mg PO Q8H Qty: 14 0RF cyclobenzaprine 5 mg tablet 5 mg PO TID PRN (Reason: muscle spasm) 7 Days Qty: 21 0RF naproxen 500 mg tablet 500 mg PO BID 7 Days Qty: 14 0RF cyclobenzaprine 10 mg tablet 10 mg PO BEDTIME PRN (Reason: muscle spasm) Qty: 7 0RF ketorolac 10 mg tablet 10 mg PO TID PRN (Reason: pain) 5 Days Qty: 15 0RF lidocaine 5 % adhesive patch,medicated 1 patch topical DAILY PRN (Reason: pain) Qty: 15 0RF Rx Instructions: leave on most painful area for up to 12 hrs naproxen 500 mg tablet 500 mg PO BID PRN (Reason: pain) Qty: 20 0RF methocarbamol 750 mg tablet 750 mg PO TID PRN (Reason: muscle spasm) Qty: 20 0RF Stand Alone Forms: Work/School Release
== END 2023-05-09 08:18 | disposition home or self-care (01) ==
PROVIDERS: Emergency Provider Emergency Medicine
DX: B34.9 Viral infection, unspecified (principal); J02.8 Acute pharyngitis due to other specified organisms; R09.89 Other specified symptoms and signs involving the circulatory and respiratory systems; R05.9 Cough, unspecified; Z11.52 Encounter for screening for COVID-19; Z20.822 Contact with and (suspected) exposure to COVID-19
CPT/HCPCS: 71046; 87502; 87635; 99282; 99283

== ENCOUNTER 2023-07-12 05:13 | Emergency (ER) | payer MEDICAID, SELFPAY ==
--- NOTE | ~2023-07-12 | XR_ITS ---
EXAMINATION: XR CHEST CLINICAL INFORMATION: Upper respiratory tract symptoms COMPARISON: 05/09/2023 TECHNIQUE: Frontal view of the chest was obtained. FINDINGS: No significant abnormality is noted involving the heart, lungs, mediastinum, bony thorax or soft tissues. XR/XR chest 1V IMPRESSION: Unremarkable examination.
[2023-07-12 05:23] VITALS: BP 144/98; PULSE 81; RESP 18; TEMP 37; O2SAT 94; BMI 30.7
[2023-07-12 06:15] LABS: Influenza A PCR NEGATIVE (Negative); Influenza B PCR NEGATIVE (Negative); Resp Syncy Virus RNA Qual PCR NEGATIVE (Negative); SARS COV2 PCR INHOUSE POSITIVE (Negative)
--- NOTE | 2023-07-12 06:53 | ED_ITS ---
HPI - General Adult General Chief complaint: Upper Respiratory Symptoms Stated complaint: body fatigue Time Seen by Provider: 07/12/23 06:37 Source: patient Mode of arrival: ambulatory Limitations: no limitations History of Present Illness HPI narrative: 57 year-old male presents with fatigue, malaise, myalgias, dry cough, subjective fevers and chills X4-5 days.?Grandson sick at home..? Denies chest pain, shortness of breath, nausea, vomiting, abdominal pain, headache vision change, dizziness, weakness, changes in bowel or urinary habits Related Data Previous Rx's Medication Instructions Recorded blood-glucose meter #1 ea 06/27/22 metformin 500 mg tablet 500 mg PO BIDWMEAL #60 tabs 06/27/22 cyclobenzaprine 10 mg tablet 10 mg PO Q8H #14 tabs 08/28/22 ketorolac 10 mg tablet 10 mg PO Q8H #14 tabs 08/28/22 cyclobenzaprine 5 mg tablet 5 mg PO TID PRN muscle spasm 7 11/20/22 days #21 tabs naproxen 500 mg tablet 500 mg PO BID 7 days #14 tabs 11/20/22 cyclobenzaprine 10 mg tablet 10 mg PO BEDTIME PRN muscle spasm 01/26/23 #7 tabs ketorolac 10 mg tablet 10 mg PO TID PRN pain 5 days #15 01/26/23 tabs lidocaine 5 % topical patch 1 patch topical DAILY PRN pain #15 01/26/23 ea methocarbamol 750 mg tablet 750 mg PO TID PRN muscle spasm #20 02/22/23 tabs naproxen 500 mg tablet 500 mg PO BID PRN pain #20 tabs 02/22/23 Allergies Allergy/AdvReac Type Severity Reaction Status Date / Time No Known Allergies Allergy Verified 01/26/23 08:42 [No Known Allergies*] Review of Systems Review of Systems: Constitutional : No Weight loss, No Fever, No Chills, + Fatigue, + Malaise ENT/Mouth : No sore throat, No Rhinorrhea Eyes: No Eye Pain, No Swelling, No Redness Cardiovascular : No Chest Pain, No SOB, No Dyspnea on Exertion, No Orthopnea, No Edema, No Palpitations Respiratory : + Cough, No Sputum, No Wheezing Gastrointestinal : No Nausea, No Vomiting, No Diarrhea, No Constipation, No abdominal Pain, No Hematochezia, No Melena Genitourinary : No Dysuria, No Urinary Frequency, No Hematuria, Musculoskeletal : No joint pain, + Myalgias, No Joint Swelling Skin : No Skin Lesions, No rash Neuro : No Weakness, No Numbness, No Dizziness, No Headache Psych : No Anxiety/Panic, No Depression All other systems reviewed and are negative Yes all other systems are reviewed and are negative [facility] Past Medical History Attestation statement: The following information was validated with the patient. Source: old records reviewed and nursing notes reviewed Social History Social History Alcohol intake: current Alcohol intake frequency: does not drink Alcohol type: beer Advance Directives: No Advance Directives Information Provided: No Physical Exam ED Vital Signs: Vital Signs - 24 hr 07/12/23 05:23 Temperature 98.6 F Pulse Rate 81 Respiratory Rate 18 Blood Pressure 144/98 H Pulse Oximetry 94 Oxygen Delivery Method Room Air BMI result Body Mass Index 30.7 vss Appearance: Alert.? Oriented X3.? No acute distress.? Head: Normocephalic, atraumatic, no step-offs or deformities Eyes: Pupils equal, round and reactive to light.? Neck: Normal inspection.? Neck supple.? CVS: Normal heart rate and rhythm.? Pulses normal.? Respiratory: No respiratory distress.? Breath sounds normal.? Abdomen: Soft and nontender.? Skin: Skin warm and dry.? Normal skin color.? Normal skin turgor.? Extremities: No lower extremity edema.? No calf ttp. 5/5 strength to bilateral upper and lower extremities Neuro: Oriented X 3.? No motor deficit.? No sensory deficit. CN 2-12 intact Course Reevaluation(s) Reevaluation #1: Patient positive for COVID-19 CBC guidelines discussed with patient. Patient's vital signs are stable saturating well on room air. Chest x-ray unremarkable. Patient to be discharged home with supportive measures symptoms have been going on for 4-5 days no indication for antiviral treatment. Educated patient on diagnosis and treatment plan, answered all question, patient verbalizes understanding. At this time patient will be discharged home, advised to return with new or worsening symptoms. Educated on worrisome signs and symptoms and when to return. At this time I feel comfortable discharge home. Time: 06:58 Medical Decision Making Medical Decision Making [facility] Narrative: 0655 57-year-old male presents with fatigue, malaise, dry cough, myalgias times 4-5 days. Physical exam benign History and physical exam concerning for viral illness versus bronchitis versus flu versus COVID versus RSV.? Unlikely pneumonia, ACS, dissection, pulmonary embolism, acute respiratory distress Plan at this time viral testing will discharge patient home with supportive measures.? Educated patient on diagnosis and treatment plan, answered all question, patient verbalizes understanding.? At this time patient will be discharged home, advised to return with new or worsening symptoms.? Educated on worrisome signs and symptoms and when to return.? At this time I feel comfortable discharge home. Differential Diagnosis Differential Diagnoses: The differential diagnosis associated with the presentation includes History and physical exam concerning for viral illness versus bronchitis versus flu versus COVID versus RSV.? Unlikely pneumonia, ACS, dissection, pulmonary embolism, acute respiratory distress Admission/Observation Consideration of admission/observation: Escalation of care including admission/observation considered Unlikely Lab Data [facility] Lab Attestation statement: I reviewed the patient's lab results. Labs: Lab Results 07/12/23 Range/Units 05:29 Influenza Type A (PCR) NEGATIVE (Negative) Influenza Type B (PCR) NEGATIVE (Negative) RSV RNA Qual (PCR) NEGATIVE (Negative) SARS-CoV-2 RNA (RT-PCR) POSITIVE A (Negative) Chronic Conditions Patient?s care impacted by: Diabetes Critical Care Time Critical Care Time Critical Care Time: No Discharge Plan Discharge Clinical Impression: COVID Patient Disposition: Home, Self-Care Instructions: COVID-19 (Coronavirus Disease 2019) (ED) Additional Instructions: Take your medications as prescribed. If you were prescribed antibiotics today, it is important that you take your medication to their entirety, do not skip any doses, do not finish them early. Today you tested positive for COVID-19. Take Ibuprofen or Tylenol as needed for fevers or body aches. Quarantine for 5 days and ensure you wear a mask. After 5 days you should wear a mask for 5 days after that. Practice social distancing and good hand hygiene. Drink plenty of fluids. Follow-up with your primary care provider this week. Return to the emergency department with new or worsening symptoms. In case of emergency call 911 You can purchase a pulse oximeter from your local pharmacy or grocery store, and monitor your oxygen saturation if it goes below 94% you should return to the emergency department for further evaluation. Prescriptions: No Action metformin 500 mg tablet 500 mg PO BIDWMEAL Qty: 60 0RF (DME) blood-glucose meter Kit See Rx Instructions .Route Qty: 1 0RF Rx Instructions: As directed ketorolac 10 mg tablet 10 mg PO Q8H Qty: 14 0RF Rx Instructions: First dose given in the ER by IM and patient tolerated well cyclobenzaprine 10 mg tablet 10 mg PO Q8H Qty: 14 0RF cyclobenzaprine 5 mg tablet 5 mg PO TID PRN (Reason: muscle spasm) 7 Days Qty: 21 0RF naproxen 500 mg tablet 500 mg PO BID 7 Days Qty: 14 0RF cyclobenzaprine 10 mg tablet 10 mg PO BEDTIME PRN (Reason: muscle spasm) Qty: 7 0RF ketorolac 10 mg tablet 10 mg PO TID PRN (Reason: pain) 5 Days Qty: 15 0RF lidocaine 5 % adhesive patch,medicated 1 patch topical DAILY PRN (Reason: pain) Qty: 15 0RF Rx Instructions: leave on most painful area for up to 12 hrs naproxen 500 mg tablet 500 mg PO BID PRN (Reason: pain) Qty: 20 0RF methocarbamol 750 mg tablet 750 mg PO TID PRN (Reason: muscle spasm) Qty: 20 0RF Referrals: Physician,Unknown J [Primary Care Provider] - 3 days Stand Alone Forms: Work/School Release Interventions: ED Discharge Assessment Last Done: 07/12/23 06:49 Discharge Date/Time: 07/12/23 06:51
== END 2023-07-12 06:51 | disposition home or self-care (01) ==
PROVIDERS: Emergency Provider Emergency Medicine
DX: U07.1 COVID-19 (principal); R50.9 Fever, unspecified; M79.10 Myalgia, unspecified site; Z79.899 Other long term (current) drug therapy
CPT/HCPCS: 0241U; 71045; 99282; 99283

== ENCOUNTER 2023-07-21 05:23 | Emergency (ER) | payer MEDICAID, SELFPAY ==
[2023-07-21 05:42] VITALS: BP 143/91; PULSE 79; RESP 16; TEMP 36.7; O2SAT 98; BMI 31.0
[2023-07-21 06:15] LABS: Influenza A PCR NEGATIVE (Negative); Influenza B PCR NEGATIVE (Negative); Resp Syncy Virus RNA Qual PCR NEGATIVE (Negative); SARS COV2 PCR INHOUSE NEGATIVE (Negative)
--- NOTE | 2023-07-21 06:44 | ED_ITS ---
HPI - General Adult General Chief complaint: General Medical Stated complaint: COVID Swab wanted for work Time Seen by Provider: 07/21/23 06:42 Source: patient Mode of arrival: ambulatory Limitations: no limitations History of Present Illness HPI narrative: 57-year-old male history of diabetes presenting requesting a work no reporting whether he is positive or negative for COVID-19. Patient reports he had a runny nose for a few days over a week ago and he was covid + this resolved and work requesting note for clearance. No chest pain or shortness of breath, fevers, chills, sore throat, nausea, vomiting, headache, vision changes, dizziness Related Data Previous Rx's Medication Instructions Recorded blood-glucose meter #1 ea 06/27/22 metformin 500 mg tablet 500 mg PO BIDWMEAL #60 tabs 06/27/22 cyclobenzaprine 10 mg tablet 10 mg PO Q8H #14 tabs 08/28/22 ketorolac 10 mg tablet 10 mg PO Q8H #14 tabs 08/28/22 cyclobenzaprine 5 mg tablet 5 mg PO TID PRN muscle spasm 7 11/20/22 days #21 tabs naproxen 500 mg tablet 500 mg PO BID 7 days #14 tabs 11/20/22 cyclobenzaprine 10 mg tablet 10 mg PO BEDTIME PRN muscle spasm 01/26/23 #7 tabs ketorolac 10 mg tablet 10 mg PO TID PRN pain 5 days #15 01/26/23 tabs lidocaine 5 % topical patch 1 patch topical DAILY PRN pain #15 01/26/23 ea methocarbamol 750 mg tablet 750 mg PO TID PRN muscle spasm #20 02/22/23 tabs naproxen 500 mg tablet 500 mg PO BID PRN pain #20 tabs 02/22/23 ibuprofen 600 mg tablet 600 mg PO Q6H PRN fever or pain 08/13/23 #30 tabs Allergies Allergy/AdvReac Type Severity Reaction Status Date / Time No Known Allergies Allergy Verified 01/26/23 08:42 [No Known Allergies*] Review of Systems Review of Systems: Constitutional : No Weight loss, No Fever, No Chills, No Fatigue, No Malaise ENT/Mouth : No sore throat, No Rhinorrhea Eyes: No Eye Pain, No Swelling, No Redness Cardiovascular : No Chest Pain, No SOB, No Dyspnea on Exertion, No Orthopnea, No Edema, No Palpitations Respiratory : No Cough, No Sputum, No Wheezing Gastrointestinal : No Nausea, No Vomiting, No Diarrhea, No Constipation, No abdominal Pain, No Hematochezia, No Melena Genitourinary : No Dysuria, No Urinary Frequency, No Hematuria, Musculoskeletal : No joint pain, No Myalgias, No Joint Swelling Skin : No Skin Lesions, No rash Neuro : No Weakness, No Numbness, No Dizziness, No Headache Psych : No Anxiety/Panic, No Depression All other systems reviewed and are negative Yes all other systems are reviewed and are negative [facility] Past Medical History Attestation statement: The following information was validated with the patient. Source: old records reviewed and nursing notes reviewed Social History Social History Alcohol intake: current Alcohol intake frequency: does not drink Alcohol type: beer Smoked in Last 30 Days: No Use of substances other than those prescribed or required for medical reasons: No Advance Directives: No Advance Directives Information Provided: Yes Physical Exam ED Vital Signs: Vital Signs - 24 hr 07/21/23 05:42 Temperature 98.0 F Pulse Rate 79 Respiratory Rate 16 Blood Pressure 143/91 H Pulse Oximetry 98 Oxygen Delivery Method Room Air BMI result Body Mass Index 31.0 Vital signs stayed Appearance: Alert.? Oriented X3.? No acute distress.? Head: Normocephalic, atraumatic, no step-offs or deformities Eyes: Pupils equal, round and reactive to light.? Neck: Normal inspection.? Neck supple.? CVS: Normal heart rate and rhythm.? Pulses normal.? Respiratory: No respiratory distress.? Breath sounds normal.? Abdomen: Soft and nontender.? Skin: Skin warm and dry.? Normal skin color.? Normal skin turgor.? Extremities: No lower extremity edema.? No calf ttp. 5/5 strength to bilateral upper and lower extremities Neuro: Oriented X 3.? No motor deficit.? No sensory deficit. CN 2-12 intact Medical Decision Making Medical Decision Making [facility] Narrative: 57-year-old male presents requesting medical clearance for work. Was covid + on the per chart review. Physical exam This was likely a viral illness however no normal physical exam he is likely recovering/has recovered from viral illness. Asymptomatic. Unlikely metabolic derangements. No signs of pneumonia, acute respiratory distress. Plan at this time will discharge patient home with a work note Educated patient on diagnosis and treatment plan, answered all question, patient verbalizes understanding. At this time patient will be discharged home, advised to return with new or worsening symptoms. Educated on worrisome signs and symptoms and when to return. At this time I feel comfortable discharge home. Differential Diagnosis Differential Diagnoses: The differential diagnosis associated with the presentation includes This was likely a viral illness however no normal physical exam he is likely recovering/has recovered from viral illness. Asymptomatic. Unlikely metabolic derangements. No signs of pneumonia, acute respiratory distress. Admission/Observation Consideration of admission/observation: Escalation of care including admission/observation considered Unlikely Lab Data [facility] Lab Attestation statement: I reviewed the patient's lab results. Labs: Lab Results 07/21/23 Range/Units 05:34 Influenza Type A (PCR) NEGATIVE (Negative) Influenza Type B (PCR) NEGATIVE (Negative) RSV RNA Qual (PCR) NEGATIVE (Negative) SARS-CoV-2 RNA (RT-PCR) NEGATIVE (Negative) Tests considered The following testing was considered but not selected: No indication for labs, imaging Discharge Plan Discharge Clinical Impression: Normal physical exam Patient Disposition: Home, Self-Care Additional Instructions: Take your medications as prescribed. If you were prescribed antibiotics today, it is important that you take your medication to their entirety, do not skip any doses, do not finish them early. Follow-up with your primary care provider this week. Return to the emergency department with new or worsening symptoms. Such as fevers, chills, chest pain, shortness of breath, nausea, vomiting, dizziness, headache, vision changes, lethargy In case of emergency call 911 Negative COVID today in the department on 07/21/2023 Prescriptions: No Action metformin 500 mg tablet 500 mg PO BIDWMEAL Qty: 60 0RF (DME) blood-glucose meter Kit See Rx Instructions .Route Qty: 1 0RF Rx Instructions: As directed ketorolac 10 mg tablet 10 mg PO Q8H Qty: 14 0RF Rx Instructions: First dose given in the ER by IM and patient tolerated well cyclobenzaprine 10 mg tablet 10 mg PO Q8H Qty: 14 0RF cyclobenzaprine 5 mg tablet 5 mg PO TID PRN (Reason: muscle spasm) 7 Days Qty: 21 0RF naproxen 500 mg tablet 500 mg PO BID 7 Days Qty: 14 0RF cyclobenzaprine 10 mg tablet 10 mg PO BEDTIME PRN (Reason: muscle spasm) Qty: 7 0RF ketorolac 10 mg tablet 10 mg PO TID PRN (Reason: pain) 5 Days Qty: 15 0RF lidocaine 5 % adhesive patch,medicated 1 patch topical DAILY PRN (Reason: pain) Qty: 15 0RF Rx Instructions: leave on most painful area for up to 12 hrs naproxen 500 mg tablet 500 mg PO BID PRN (Reason: pain) Qty: 20 0RF methocarbamol 750 mg tablet 750 mg PO TID PRN (Reason: muscle spasm) Qty: 20 0RF ibuprofen 600 mg tablet 600 mg PO Q6H PRN (Reason: fever or pain) Qty: 30 0RF Referrals: Physician,Unknown J [Physician] - 2 days Interventions: ED Discharge Assessment Last Done: 07/21/23 06:52 Discharge Date/Time: 07/21/23 06:53
--- NOTE | 2023-07-21 06:51 | PC.NURSE ---
pt discharge by provider, The RN reviewed discharge instructions with pt. pt verbalized understanding.
== END 2023-07-21 06:53 | disposition home or self-care (01) ==
PROVIDERS: Emergency Provider Student in an Organized Health Care Education/Training Program
DX: R09.89 Other specified symptoms and signs involving the circulatory and respiratory systems (principal); Z20.828 Contact with and (suspected) exposure to other viral communicable diseases; Z20.822 Contact with and (suspected) exposure to COVID-19
CPT/HCPCS: 0241U; 99282; 99283

== ENCOUNTER 2023-08-13 01:34 | Emergency (ER) | payer MEDICAID, SELFPAY ==
--- NOTE | ~2023-08-13 | XR_ITS ---
EXAMINATION: XR SHOULDER, LEFT CLINICAL INFORMATION: Fall. Pain. COMPARISON: None available. TECHNIQUE: AP external rotation, Grashey, scapular Y, and axillary views of the left shoulder. FINDINGS: The bone mineralization is normal. No fracture is seen. There is acromioclavicular degenerative change with mild subchondral sclerosis and minimal osteophyte formation. There are calcifications just above the lateral humeral head covering approximately 1.7 cm. The soft tissues are otherwise unremarkable XR/XR shoulder LT min 2V IMPRESSION: 1. No fracture or dislocation. 2. Mild degenerative change of the left acromioclavicular joint. 3. Calcifications just above the lateral humeral head, possibly representing calcific tendinitis.
[2023-08-13 01:43] VITALS: BP 142/88; PULSE 76; RESP 16; TEMP 36.4; O2SAT 94; BMI 32.5
[2023-08-13 01:46] VITALS: BP 142/88; PULSE 76; RESP 16; TEMP 36.4; O2SAT 94
[2023-08-13 02:28] VITALS: BP 139/90; PULSE 82; RESP 17; TEMP 36.7; O2SAT 92
--- NOTE | 2023-08-13 02:44 | PC.NURSE ---
this rn assumed care of pt. pt reporting he slipped and fell on ice at his home and landed on his left shoulder, pt reports increasing pain at this time. pt able to have range of motion of the shoulder but reports pain with movement. [facility] in tact. at bedside to discuss pt care.
--- NOTE | 2023-08-13 02:45 | ED_ITS ---
HPI - Extremity Problem General Chief complaint: Extremity Injury, Upper Stated complaint: fall, arm pain Time Seen by Provider: 08/13/23 02:28 Source: patient Mode of arrival: ambulatory Limitations: no limitations History of Present Illness HPI Narrative: Patient while coming down slipped on the steps hitting his left shoulder to daughter scar landed on the ground no head injury no neck pain. This happened at 18:00 patient has difficulty in raising his left arm no prior history of shoulder pain Related Data Previous Rx's Medication Instructions Recorded blood-glucose meter #1 ea 06/27/22 metformin 500 mg tablet 500 mg PO BIDWMEAL #60 tabs 06/27/22 cyclobenzaprine 10 mg tablet 10 mg PO Q8H #14 tabs 08/28/22 ketorolac 10 mg tablet 10 mg PO Q8H #14 tabs 08/28/22 cyclobenzaprine 5 mg tablet 5 mg PO TID PRN muscle spasm 7 11/20/22 days #21 tabs naproxen 500 mg tablet 500 mg PO BID 7 days #14 tabs 11/20/22 cyclobenzaprine 10 mg tablet 10 mg PO BEDTIME PRN muscle spasm 01/26/23 #7 tabs ketorolac 10 mg tablet 10 mg PO TID PRN pain 5 days #15 01/26/23 tabs lidocaine 5 % topical patch 1 patch topical DAILY PRN pain #15 01/26/23 ea methocarbamol 750 mg tablet 750 mg PO TID PRN muscle spasm #20 02/22/23 tabs naproxen 500 mg tablet 500 mg PO BID PRN pain #20 tabs 02/22/23 ibuprofen 600 mg tablet 600 mg PO Q6H PRN fever or pain 08/13/23 #30 tabs Allergies Allergy/AdvReac Type Severity Reaction Status Date / Time No Known Allergies Allergy Verified 01/26/23 08:42 [No Known Allergies*] Review of Systems 2 Review of Systems: Yes all other systems are reviewed and are negative [facility] Social History Social History Alcohol intake: current Alcohol intake frequency: does not drink Alcohol type: beer Smoked in Last 30 Days: No Use of substances other than those prescribed or required for medical reasons: No Advance Directives: No Advance Directives Information Provided: Yes Physical Exam 2 Vital Signs: Vital Signs: Last Vital Signs Temp 98.1 F 08/13/23 02:28 Pulse 82 08/13/23 02:28 Resp 17 08/13/23 02:28 BP 139/90 H 08/13/23 02:28 Pulse Ox 92 08/13/23 02:28 O2 Del Method Room Air 08/13/23 02:28 BMI result Body Mass Index 32.5 Extrem: Shoulder/upper arm images: 1. Diffuse tenderness left shoulder good range of movement open can test positive increased pain on abduction Medications Administered Discontinued Medications Generic Name Dose Route Start Last Admin Trade Name Freq PRN Reason Stop Dose Admin Ibuprofen 600 mg 08/13/23 02:44 08/13/23 03:02 Ibuprofen 600 Mg Tablet PO 08/13/23 02:45 600 mg ONCE ONE Administration Medical Decision Making Medical Decision Making [facility] Narrative: Patient clinically with rotator cuff tendinitis advised take ibuprofen x-ray negative for fracture Independent Interpretation I performed an independent interpretation of an: Plain X-Ray Discharge Plan Discharge Clinical Impression: Tendinitis of left rotator cuff Patient Disposition: Home, Self-Care Instructions: Rotator Cuff Tendinitis (ED) Additional Instructions: Rest your left shoulder then slowly to physical exercise as advised Ibuprofen for pain Prescriptions: New ibuprofen 600 mg tablet 600 mg PO Q6H PRN (Reason: fever or pain) Qty: 30 0RF No Action metformin 500 mg tablet 500 mg PO BIDWMEAL Qty: 60 0RF (DME) blood-glucose meter Kit See Rx Instructions .Route Qty: 1 0RF Rx Instructions: As directed ketorolac 10 mg tablet 10 mg PO Q8H Qty: 14 0RF Rx Instructions: First dose given in the ER by IM and patient tolerated well cyclobenzaprine 10 mg tablet 10 mg PO Q8H Qty: 14 0RF cyclobenzaprine 5 mg tablet 5 mg PO TID PRN (Reason: muscle spasm) 7 Days Qty: 21 0RF naproxen 500 mg tablet 500 mg PO BID 7 Days Qty: 14 0RF cyclobenzaprine 10 mg tablet 10 mg PO BEDTIME PRN (Reason: muscle spasm) Qty: 7 0RF ketorolac 10 mg tablet 10 mg PO TID PRN (Reason: pain) 5 Days Qty: 15 0RF lidocaine 5 % adhesive patch,medicated 1 patch topical DAILY PRN (Reason: pain) Qty: 15 0RF Rx Instructions: leave on most painful area for up to 12 hrs naproxen 500 mg tablet 500 mg PO BID PRN (Reason: pain) Qty: 20 0RF methocarbamol 750 mg tablet 750 mg PO TID PRN (Reason: muscle spasm) Qty: 20 0RF Stand Alone Forms: Work/School Release Interventions: ED Discharge Assessment Last Done: 08/13/23 03:06 Discharge Date/Time: 08/13/23 03:07
[2023-08-13] MEDS: Ibuprofen 600 MG TABLET PO (03:02)
== END 2023-08-13 03:07 | disposition home or self-care (01) ==
PROVIDERS: Emergency Provider Internal Medicine
DX: S46.012A Strain of muscle(s) and tendon(s) of the rotator cuff of left shoulder, initial encounter (principal); W10.8XXA Fall (on) (from) other stairs and steps, initial encounter; Y93.89 Activity, other specified; Y92.9 Unspecified place or not applicable; Y99.9 Unspecified external cause status
CPT/HCPCS: 73030; 99283; 99284

== ENCOUNTER 2023-10-20 16:25 | Emergency (ER) | payer MEDICAID, SELFPAY ==
[2023-10-20 16:35] VITALS: BP 147/85; PULSE 85; RESP 18; TEMP 36.9; O2SAT 93; BMI 32.3
--- NOTE | 2023-10-20 16:35 | ED.GENADULT ---
HPI - General Adult General Chief complaint: General Medical Stated complaint: weakness all over Time Seen by Provider: 10/21/23 00:08 History of Present Illness HPI narrative: The patient is a 57-year-old male who says that he left work today because he was not feeling well. He is very vague about what symptoms he was experiencing. He says that he felt that his body was achy and he had some chills and fatigue. He thought this could have been related to eating some ?Armenian food? earlier in the day but he does not really describe nausea or vomiting at all. No diarrhea. He also says he has had no chest pain or shortness of breath or diaphoresis. He says that perhaps he felt earlier the way he did when he had COVID at 1 point in the past. While waiting to be seen in the emergency room he has had resolution of his symptoms and was feeling back to normal by the time I saw him. Related Data Previous Rx's Medication Instructions Recorded blood-glucose meter #1 ea 06/27/22 metformin 500 mg tablet 500 mg PO BIDWMEAL #60 tabs 06/27/22 cyclobenzaprine 10 mg tablet 10 mg PO Q8H #14 tabs 08/28/22 ketorolac 10 mg tablet 10 mg PO Q8H #14 tabs 08/28/22 cyclobenzaprine 5 mg tablet 5 mg PO TID PRN muscle spasm 7 11/20/22 days #21 tabs naproxen 500 mg tablet 500 mg PO BID 7 days #14 tabs 11/20/22 cyclobenzaprine 10 mg tablet 10 mg PO BEDTIME PRN muscle spasm 01/26/23 #7 tabs ketorolac 10 mg tablet 10 mg PO TID PRN pain 5 days #15 01/26/23 tabs lidocaine 5 % topical patch 1 patch topical DAILY PRN pain #15 01/26/23 ea methocarbamol 750 mg tablet 750 mg PO TID PRN muscle spasm #20 02/22/23 tabs naproxen 500 mg tablet 500 mg PO BID PRN pain #20 tabs 02/22/23 ibuprofen 600 mg tablet 600 mg PO Q6H PRN fever or pain 08/13/23 #30 tabs metformin 500 mg tablet 500 mg PO BID #60 tabs 10/21/23 Allergies Allergy/AdvReac Type Severity Reaction Status Date / Time No Known Allergies Allergy Verified 10/20/23 16:35 [No Known Allergies*] Review of Systems Review of Systems: Yes all other systems are reviewed and are negative [facility] Social History Social History Alcohol intake: current Alcohol intake frequency: does not drink Alcohol type: beer Advance Directives: No Advance Directives Information Provided: No Physical Exam ED Vital Signs: Vital Signs - 24 hr 10/20/23 16:35 10/20/23 22:10 10/21/23 01:32 Temperature 98.4 F 98.7 F 97.7 F Pulse Rate 85 81 70 Respiratory Rate 18 18 17 Blood Pressure 147/85 H 153/93 H 143/71 H Pulse Oximetry 93 95 94 Oxygen Delivery Method Room Air Room Air Room Air BMI result Body Mass Index 32.3 Const Other: The patient is a healthy and athletic looking 57-year-old. He does not appear in acute distress HENMT Other: Face is symmetrical. Mucous membranes moist Eyes Other: Pupils are round equal, conjunctivae clear, extraocular movements intact Neck Other: No JVD Resp Effort & Inspection: normal respiratory effort Auscultation: clear to auscultation bilaterally Cardio Rate: regular rate Rhythm: regular rhythm Heart sounds: S1 normal heart sound present and S2 normal heart sound present GI Other: Abdomen is soft and nontender Skin Other: Skin is dry and unremarkable Neuro Other: The patient is awake, alert, oriented, appropriate. Cranial nerves are grossly intact. He moves his extremities normally and has normal coordination and normal gait. Grossly neurologically intact. Extrem Other: No peripheral edema Course Course Course Narrative: RME:?57 yo male hx of DM here for eval of body aches, generalized weakness, subjective fevers that began while at work today. Denies cough, sore throat. Full HPI, ROS and PE to be performed by the primary ED provider. Medical Decision Making Medical Decision Making [facility] Narrative: The patient is a 57-year-old male. He has a history of type 2 diabetes but I do not believe he is currently under any treatment for diabetes. He says he is not taking any medications. He does not have a regular doctor. He was at work today when he felt unwell. His description of his symptoms was quite vague. His EKG is unremarkable. Troponins are flat. His other labs are significant primarily for his worsening renal function. His creatinine today is 1.57 in his BUN is 18. His GFR is 46. His blood sugars 263. His last previous metabolic panel was 2 years ago. It is therefore impossible to say whether his renal function is indicative of an acute kidney injury or whether it is a manifestation of a chronically worsening renal function. The patient was offered IV hydration but did not wish to have any IV hydration. He was discharged. He was given a work note for today and tomorrow. He was advised that it is very important that he get connected with a primary care doctor again since his diabetes is not being managed and his kidney function is worsening. He prescribed metformin 500 mg b.i.d. and he is strongly advised to get a new PCP. He should return if worse Lab Data 10/20/23 17:43 10/20/23 17:43 Labs: Lab Results 10/20/23 10/21/23 Range/Units 17:43 00:27 WBC 7.9 (4.8-10.8) X10*3/uL RBC 4.82 (4.60-5.80) X10*6/uL Hgb 14.5 (14.0-18.0) g/dl Hct 41.2 L (42.0-52.0) % MCV 85.5 (80.0-98.0) fL MCH 30.1 (27.0-33.0) pg MCHC 35.2 (31.0-36.0) g/dl RDW 11.8 (11.0-16.0) % Plt Count 298 (160-400) X10*3/uL MPV 10.8 (9.4-12.4) fL Immature Gran % (Auto) 0.3 (0.0-0.4) % Neut % (Auto) 45.9 (45-73) % Lymph % (Auto) 43.5 H (20-40) % Mora % (Auto) 7.9 (2-11) % Eos % (Auto) 1.8 (0-4) % Baso % (Auto) 0.6 (0-2) % Lymph # (Auto) 3.4 (1.2-4.9) X10*3/uL Mora # (Auto) 0.6 (0.1-1.2) X10*3/uL Eos # (Auto) 0.1 (0.0-0.4) X10*3/uL Baso # (Auto) 0.1 (0.0-0.2) X10*3/uL Abs Immat Gran (auto) 0.02 (0.00-0.03) X10*3/uL Absolute Neuts (auto) 3.6 (2.0-8.3) x10*3/uL Absolute Nucleated RBC 0.000 (0.0-0.012) X10*3/uL Nucleated RBC % (auto) 0.0 (0.0-0.2) /100WBC Sodium 138 (135-145) mmol/L Potassium 4.4 (3.3-5.1) mmol/L Chloride 103 (96-108) mmol/L Carbon Dioxide 29 (22-29) mmol/L Anion Gap 10 L (12-20) BUN 18 H (9-16) mg/dL Creatinine 1.57 H (0.5-1.4) mg/dL Estim Creat Clear Calc 59.5 Estimated GFR 46 Random Glucose 263 H (60-115) mg/dL Calcium 9.4 (8.4-10.2) mg/dL Magnesium 2.0 (1.6-2.6) mg/dL Total Bilirubin 0.5 (0.0-1.0) mg/dL AST 21 (5-37) U/L ALT 28 (0-40) U/L Alkaline Phosphatase 92 (39-117) U/L Troponin I High Sens < 2.7 < 2.7 (<3.5-35.0) ng/L Total Protein 7.2 (6.5-8.0) g/dL Albumin 3.9 (3.5-5.0) g/dL Influenza Type A (PCR) NEGATIVE (Negative) Influenza Type B (PCR) NEGATIVE (Negative) RSV RNA Qual (PCR) NEGATIVE (Negative) SARS-CoV-2 RNA (RT-PCR) NEGATIVE (Negative) Independent Interpretation I performed an independent interpretation of an: EKG Interpretation: EKG at 00:19 shows normal sinus rhythm at 74 beats per minute. It is a normal EKG. Discharge Plan Discharge Clinical Impression: Body aches, Chills, Renal insufficiency, Type 2 diabetes mellitus Patient Disposition: Home, Self-Care Instructions: Impaired Kidney Function (ED), Type 2 Diabetes Management for Adults (ED) Additional Instructions: Your testing today does not show any acutely dangerous process. However your testing today does show that your kidney function has gotten slightly worse since it was last checked. This is likely because of diabetes. It is very important that you start working with the regular doctor to manage your diabetes and to try to help your kidney function as much as possible. To begin with please start taking the metformin prescribed today. Take this 2 times a day as prescribed. Try to drink lot of fluids. However he should avoid any sugary drinks. Please work very hard on trying to get a primary care doctor. I would recommend contacting the [facility] or perhaps [facility] in [place]. Return to the emergency room if worse Prescriptions: New metformin 500 mg tablet 500 mg PO BID Qty: 60 0RF No Action metformin 500 mg tablet 500 mg PO BIDWMEAL Qty: 60 0RF (DME) blood-glucose meter Kit See Rx Instructions .Route Qty: 1 0RF Rx Instructions: As directed ketorolac 10 mg tablet 10 mg PO Q8H Qty: 14 0RF Rx Instructions: First dose given in the ER by IM and patient tolerated well cyclobenzaprine 10 mg tablet 10 mg PO Q8H Qty: 14 0RF cyclobenzaprine 5 mg tablet 5 mg PO TID PRN (Reason: muscle spasm) 7 Days Qty: 21 0RF naproxen 500 mg tablet 500 mg PO BID 7 Days Qty: 14 0RF cyclobenzaprine 10 mg tablet 10 mg PO BEDTIME PRN (Reason: muscle spasm) Qty: 7 0RF ketorolac 10 mg tablet 10 mg PO TID PRN (Reason: pain) 5 Days Qty: 15 0RF lidocaine 5 % adhesive patch,medicated 1 patch topical DAILY PRN (Reason: pain) Qty: 15 0RF Rx Instructions: leave on most painful area for up to 12 hrs naproxen 500 mg tablet 500 mg PO BID PRN (Reason: pain) Qty: 20 0RF methocarbamol 750 mg tablet 750 mg PO TID PRN (Reason: muscle spasm) Qty: 20 0RF ibuprofen 600 mg tablet 600 mg PO Q6H PRN (Reason: fever or pain) Qty: 30 0RF Referrals: [facility] [Provider Group] (Type 2 diabetes, impaired renal function) [facility] [place] [Provider Group] (Type 2 diabetes, impaired renal function) Stand Alone Forms: Work/School Release
[2023-10-20 17:47] LABS: MANUAL DIFF FLAG NO
[2023-10-20 17:57] LABS: Basophils Absolute Auto 0.1 X10*3/uL (0.0-0.2); Basophils Percent Auto 0.6 % (0-2); Eosinophils Absolute Auto 0.1 X10*3/uL (0.0-0.4); Eosinophils Percent Auto 1.8 % (0-4); Hematocrit 41.2 % (42.0-52.0); Hemoglobin 14.5 g/dl (14.0-18.0); Imm Gran Abs Auto 0.02 X10*3/uL (0.00-0.03); Imm Gran Pct Auto 0.3 % (0.0-0.4); Lymphocytes Absolute Auto 3.4 X10*3/uL (1.2-4.9); Lymphocytes Percent Auto 43.5 % (20-40); Mean Corpuscular HGB Conc 35.2 g/dl (31.0-36.0); Mean Corpuscular Hemoglobin 30.1 pg (27.0-33.0); Mean Corpuscular Volume 85.5 fL (80.0-98.0); Mean Platelet Volume 10.8 fL (9.4-12.4); Monocytes Absolute Auto 0.6 X10*3/uL (0.1-1.2); Monocytes Percent Auto 7.9 % (2-11); Neutrophils Absolute Auto 3.6 x10*3/uL (2.0-8.3); Neutrophils Percent Auto 45.9 % (45-73); Platelet Count 298 X10*3/uL (160-400); Red Blood Count 4.82 X10*6/uL (4.60-5.80); Red Cell Distribution Width 11.8 % (11.0-16.0); White Blood Count 7.9 X10*3/uL (4.8-10.8)
[2023-10-20 18:04] LABS: Alanine Aminotransferase 28 U/L (0-40); Albumin Level 3.9 g/dL (3.5-5.0); Alkaline Phosphatase 92 U/L (39-117); Anion Gap 10 (12-20); Aspartate Amino Transferase 21 U/L (5-37); Bilirubin Total 0.5 mg/dL (0.0-1.0); Blood Urea Nitrogen 18 mg/dL (9-16); Calcium 9.4 mg/dL (8.4-10.2); Carbon Dioxide 29 mmol/L (22-29); Chloride 103 mmol/L (96-108); Creatinine Clr Calc Pharmacy 59.5; Estimated Glomerular Filt Rate 46; Glucose Random 263 mg/dL (60-115); Potassium 4.4 mmol/L (3.3-5.1); Sodium 138 mmol/L (135-145); Total Protein 7.2 g/dL (6.5-8.0)
[2023-10-20 18:47] LABS: Influenza A PCR NEGATIVE (Negative); Influenza B PCR NEGATIVE (Negative); Resp Syncy Virus RNA Qual PCR NEGATIVE (Negative); SARS COV2 PCR INHOUSE NEGATIVE (Negative)
[2023-10-20 22:10] VITALS: BP 153/93; PULSE 81; RESP 18; TEMP 37.1; O2SAT 95
--- NOTE | 2023-10-21 00:15 | ECG_ITS ---
Test Reason : WEAKNESS Blood Pressure : / mmHG Vent. Rate : 074 BPM Atrial Rate : 074 BPM P-R Int : 142 ms QRS Dur : 074 ms QT Int : 396 ms P-R-T Axes : 043 028 059 degrees QTc Int : 439 ms Normal sinus rhythm Normal ECG When compared with ECG of 06-AUG-2022 04:52, No significant change was found Referred By: Charles Kim Electronically Signed By:Fred Magaña
[2023-10-21 00:43] LABS: Troponin-I High Sensitivity < 2.7 ng/L (<3.5-35.0)
[2023-10-21 01:03] LABS: Troponin-I High Sensitivity < 2.7 ng/L (<3.5-35.0)
[2023-10-21 01:32] VITALS: BP 143/71; PULSE 70; RESP 17; TEMP 36.5; O2SAT 94
[2023-10-21 04:38] VITALS: BP 143/83; PULSE 70; RESP 12; TEMP 36.5; O2SAT 98
== END 2023-10-21 04:40 | disposition home or self-care (01) ==
PROVIDERS: Physician Assistant Medical; Emergency Provider Emergency Medicine
DX: R68.83 Chills (without fever) (principal); N28.9 Disorder of kidney and ureter, unspecified; E11.9 Type 2 diabetes mellitus without complications; R52 Pain, unspecified; Z03.818 Encounter for observation for suspected exposure to other biological agents ruled out
CPT/HCPCS: 0241U; 36415; 80053; 83735; 84484; 85025; 93005; 99283; 99284

== ENCOUNTER → 2023-10-21 00:15 | Outpatient (BNV) | payer MEDICAID, SELFPAY | PROVIDERS: Emergency Provider Emergency Medicine; Visit Provider Internal Medicine Cardiovascular Disease | DX: R53.1 Weakness (principal) | CPT/HCPCS: 93010 ==

== ENCOUNTER 2024-02-07 12:46 | Emergency (ER) | payer SELFPAY ==
--- NOTE | ~2024-02-07 | XR_ITS ---
EXAMINATION: XR SHOULDER, LEFT CLINICAL INFORMATION: Pain COMPARISON: 08/13/2019 TECHNIQUE: AP external rotation, Grashey, scapular Y views of the left shoulder. FINDINGS: The bones and soft tissues are normal. No fracture. Glenohumeral alignment is anatomic with normal joint space. There are mild degenerative changes in the left acromioclavicular joint No abnormal soft tissue calcifications. XR/XR shoulder LT min 2V IMPRESSION: Mild degenerative changes in the left acromioclavicular joint
[2024-02-07 12:57] VITALS: BP 156/85; PULSE 87; RESP 16; TEMP 36.4; O2SAT 94; BMI 31.2
--- NOTE | 2024-02-07 12:58 | ED_ITS ---
HPI - Extremity Injury (Upper) General Chief Complaint: Extremity Injury, Upper Stated Complaint: l shoulder pain Time Seen by Provider: 02/07/24 14:44 Source: patient Mode of arrival: ambulatory Limitations: no limitations History of Present Illness ED Provider: ADELINE LARA PA-C HPI narrative: 58 year old male with pmhx significant for uncontrolled diabetes presents to the ED today for evaluation of left shoulder pain on waking this morning. Pain is localized to the outer aspect of his left shoulder, no radiation. Admits to 7/10 throbbing pain that is exacerbated with movement of the left arm, specifically with abduction. Denies injury/ trauma. Denies numbness/tingling/weakness of the LUE. No radiation of pain. Admits to having this pain twice in the past and was diagnosed with tendinitis. He does not currently have a PCP. Denies chest pain, sob, palpitations, jaw pain. No OTC pain meds prior to arrival. He is requesting work note for today. Related Data Previous Rx's ?Medication ?Instructions ?Recorded blood-glucose meter #1 ea 06/27/22 metformin 500 mg tablet 500 mg PO BIDWMEAL #60 tabs 06/27/22 cyclobenzaprine 10 mg tablet 10 mg PO Q8H #14 tabs 08/28/22 ketorolac 10 mg tablet 10 mg PO Q8H #14 tabs 08/28/22 cyclobenzaprine 5 mg tablet 5 mg PO TID PRN muscle spasm 7 11/20/22 days #21 tabs naproxen 500 mg tablet 500 mg PO BID 7 days #14 tabs 11/20/22 cyclobenzaprine 10 mg tablet 10 mg PO BEDTIME PRN muscle spasm 01/26/23 #7 tabs ketorolac 10 mg tablet 10 mg PO TID PRN pain 5 days #15 01/26/23 tabs lidocaine 5 % topical patch 1 patch topical DAILY PRN pain #15 01/26/23 ea methocarbamol 750 mg tablet 750 mg PO TID PRN muscle spasm #20 02/22/23 tabs naproxen 500 mg tablet 500 mg PO BID PRN pain #20 tabs 02/22/23 ibuprofen 600 mg tablet 600 mg PO Q6H PRN fever or pain 08/13/23 #30 tabs metformin 500 mg tablet 500 mg PO BID #60 tabs 10/21/23 naproxen 500 mg tablet 500 mg PO Q8-12H PRN pain (scale 02/07/24 score 1-3) #20 tabs Allergies Allergy/AdvReac Type Severity Reaction Status Date / Time No Known Allergies Allergy Verified 02/07/24 12:59 [No Known Allergies*] Review of Systems Review of Systems: Constitutional: No fever, chills, fatigue, night sweats, weight changes ENT/Mouth: No ear pain, hearing loss, nasal congestion, sinus pain, rhinorrhea, sore throat Eyes: No eye pain, swelling, redness, vision changes, discharge Cardio: No chest pain, palpitations, EDOUARD, orthopnea, peripheral edema Pulm: No SOB, cough, sputum, wheezing, dyspnea, hemoptysis GI: No nausea, vomiting, hematemesis, abdominal pain, diarrhea, constipation, hematochezia, melena : No irregular bleeding, dysuria, frequency, urgency, hesitancy, hematuria, flank pain, urinary flow changes, urinary incontinence or retention MSK: No back pain, neck pain, joint pain, myalgias, +left shoulder pain Skin: No lesions, rashes Neuro: No weakness, numbness, paresthesias, LOC, dizziness, headache Psych: No anxiety/panic, depression, SI/HI, AH/VH All other systems reviewed and are negative. [facility] Past Medical History Attestation statement: The following information was validated with the patient. Source: old records reviewed and nursing notes reviewed Social History Social History Alcohol intake: current Alcohol intake frequency: holidays/special occasions only Alcohol type: beer Advance Directives: No Do you have a plan to hurt others: No Plan Physical Exam Vital Signs: Vital Signs: Last Vital Signs Temp 97.2 F 02/07/24 15:20 Pulse 81 02/07/24 15:20 Resp 14 02/07/24 15:20 BP 141/75 H 02/07/24 15:20 Pulse Ox 97 02/07/24 15:20 O2 Del Method Room Air 02/07/24 15:20 BMI result Body Mass Index 31.2 hypertensive, vitals otherwise wnl Const: General: cooperative, healthy appearing, comfortable and no acute distress Orientation/consciousness: patient oriented x3 Limitations: no limitations HEENT: Head: Yes normal to inspection, Yes No palpable skull fracture present, Yes normocephalic and Yes atraumatic Eyes: General: appearance normal, both eyes and all related structures Pupils: Equal, round and reactive pupils present Neck: Neck: Yes normal visual inspection and Yes full ROM Chest: Chest palpation & inspection: normal inspection of the chest and normal palpation of entire chest wall Resp: Effort & Inspection: normal respiratory effort and able to speak in complete sentences Cardio: Rate: regular rate Rhythm: regular rhythm Back/Spine/Pelvis: Other: No midline spinous tenderness or step off deformity. No paraspinal muscle tenderness. Skin: General skin exam: no rashes or lesions noted Neuro: Other: Strength 5/5 intact throughout. Sensation intact to light touch.? Neurovascular intact distally.? General: patient oriented x3 and gait normal Cranial nerves: Yes Equal, round and reactive pupils present Extrem: Other: + no overlying skin changes or deformity noted to left shoulder. Full ROM intact to left shoulder with pain ilicited on abduction. No palpable deformity, tenderness, crepitus, fluctuance, warmth. Strength 5/5 intact. Sensation intact. 2+ radial/ ulnar pulse intact. Course Course Course Narrative: This is a Rapid Medical Examination (RME) performed by Alli Quintero PA-C in triage. Full HPI, ROS, assessment and treatment plan per primary provider in the Main ED. 58 yo male presenting to the ER for evaluation of left shoulder pain that started when he woke up this morning. Worse with movement of the arm, including abduction. No chest pain. No numbness, tingling, weakness in the left arm. Reports 7/10 throbbing pain in the outside of the left shoulder. Plan: XR shoulder Reevaluation(s) Reevaluation #1: 1520-- XR left shoulder showing mild degenerative changes, no acute fracture or pathology. Discussed results with patient. Concern for tendinitis vs muscle strain. will send naproxen to pharmacy. advised PCP/ ortho follow up which patient is agreeable with. offered sling for comfort however patient declines. Patient has remained stable throughout ED visit today. Discussed worrisome signs and symptoms and when to return to the ED. All questions answered at this time. Patient is agreeable with disposition and stable for discharge. Medical Decision Making Medical Decision Making MDM Narrative: 58 year old male with pmhx significant for uncontrolled diabetes presents to the ED today for evaluation of left shoulder pain on waking this morning. Patient slightly hypertensive, vitals otherwise wnl. afebrile. he is nontoxic appearing and in NAD. On exam, no overlying skin changes or deformity noted to left shoulder. Full ROM intact to left shoulder with pain ilicited on abduction. No palpable deformity, tenderness, crepitus, fluctuance, warmth. Strength 5/5 intact. Sensation intact. 2+ radial/ ulnar pulse intact. No anterior/ lateral/ posterior chest wall tenderness. Differential diagnosis includes tendinitis, msk sprain/ strain, arthritis. unlikely fracture, dislocation, NV compromise, threat to limb, compartment syndrome. Plan for imaging and re-evaluation. Differential Diagnosis Differential Diagnoses: The differential diagnosis associated with the presentation includes as above Admission/Observation Not indicated Independent Interpretation I performed an independent interpretation of an: Plain X-Ray Interpretation: XR left shoulder without fracture, agree with radiologist's interpretation. Radiology Impression Discussion of test interpretation with radiology: I have reviewed the radiologist's reading. Radiologist Impression: EXAMINATION: XR SHOULDER, LEFT CLINICAL INFORMATION: Pain COMPARISON: 08/13/2019 TECHNIQUE: AP external rotation, Grashey, scapular Y views of the left shoulder. FINDINGS: The bones and soft tissues are normal. No fracture. Glenohumeral alignment is anatomic with normal joint space. There are mild degenerative changes in the left acromioclavicular joint No abnormal soft tissue calcifications. XR/XR shoulder LT min 2V IMPRESSION: Mild degenerative changes in the left acromioclavicular joint External Record Review External record reviewed: Inpatient record Prescription Management I considered prescription management with: Pain Medication (naproxen) Chronic Conditions Patient?s care impacted by: Diabetes Social Determinants Patient?s care significantly limited by Social Determinants of Health including: Other Social Determinant of Health Critical Care Time Critical Care Time Critical Care Time: No Discharge Plan Discharge Clinical Impression: Muscle strain of left shoulder region Patient Disposition: Home, Self-Care Instructions: Muscle Strain (ED), Rotator Cuff Injury (ED), Rotator Cuff Injury Exercises (DC) Additional Instructions: Your xrays show degenerative changes, no fracture. Naproxen is an anti-inflammatory that has been sent to your pharamacy for you to take as needed for pain. do not take this with other NSAIDS such as ibuprofen as this can increase risk of GI bleeding. Follow up with PCP or orthopedic doctor if symptoms persist. Return with new or worsening symptoms. In the case of emergency call 911. Prescriptions: New naproxen 500 mg tablet 500 mg PO Q8-12H PRN (Reason: pain (scale score 1-3)) Qty: 20 0RF No Action metformin 500 mg tablet 500 mg PO BIDWMEAL Qty: 60 0RF (DME) blood-glucose meter Kit See Rx Instructions .Route Qty: 1 0RF Rx Instructions: As directed ketorolac 10 mg tablet 10 mg PO Q8H Qty: 14 0RF Rx Instructions: First dose given in the ER by IM and patient tolerated well cyclobenzaprine 10 mg tablet 10 mg PO Q8H Qty: 14 0RF cyclobenzaprine 5 mg tablet 5 mg PO TID PRN (Reason: muscle spasm) 7 Days Qty: 21 0RF naproxen 500 mg tablet 500 mg PO BID 7 Days Qty: 14 0RF cyclobenzaprine 10 mg tablet 10 mg PO BEDTIME PRN (Reason: muscle spasm) Qty: 7 0RF ketorolac 10 mg tablet 10 mg PO TID PRN (Reason: pain) 5 Days Qty: 15 0RF lidocaine 5 % adhesive patch,medicated 1 patch topical DAILY PRN (Reason: pain) Qty: 15 0RF Rx Instructions: leave on most painful area for up to 12 hrs naproxen 500 mg tablet 500 mg PO BID PRN (Reason: pain) Qty: 20 0RF methocarbamol 750 mg tablet 750 mg PO TID PRN (Reason: muscle spasm) Qty: 20 0RF ibuprofen 600 mg tablet 600 mg PO Q6H PRN (Reason: fever or pain) Qty: 30 0RF metformin 500 mg tablet 500 mg PO BID Qty: 60 0RF Stand Alone Forms: Work/School Release Interventions: ED Discharge Assessment Last Done: 02/07/24 15:20 Discharge Date/Time: 02/07/24 15:24 Print Language: Algerian
[2024-02-07 15:06] VITALS: BP 141/75; PULSE 81; RESP 14; TEMP 36.2; O2SAT 92
[2024-02-07 15:20] VITALS: BP 141/75; PULSE 81; RESP 14; TEMP 36.2; O2SAT 97
--- NOTE | 2024-02-07 15:20 | PC.NURSE ---
Eval by SANTOS, negative xray, cleared for dc home.
== END 2024-02-07 15:24 | disposition home or self-care (01) ==
PROVIDERS: Emergency Provider Emergency Medicine Emergency Medical Services
DX: S46.912A Strain of unspecified muscle, fascia and tendon at shoulder and upper arm level, left arm, initial encounter (principal); X50.1XXA Overexertion from prolonged static or awkward postures, initial encounter; M25.512 Pain in left shoulder; E11.65 Type 2 diabetes mellitus with hyperglycemia; Z79.84 Long term (current) use of oral hypoglycemic drugs; Y93.84 Activity, sleeping; Y92.009 Unspecified place in unspecified non-institutional (private) residence as the place of occurrence of the external cause; Y99.9 Unspecified external cause status
CPT/HCPCS: 73030; 99283

== ENCOUNTER 2024-03-27 11:15 | Emergency (ER) | payer SELFPAY ==
--- NOTE | ~2024-03-27 | CT_ITS ---
EXAMINATION: CT HEAD WITHOUT CONTRAST CT CERVICAL SPINE WITHOUT CONTRAST CLINICAL INFORMATION: Fall. COMPARISON: None. TECHNIQUE: Contiguous axial imaging was performed from the skullbase to vertex without intravenous administration of contrast. Multidetector helical imaging was performed through the cervical spine. This CT examination was performed using dose optimization techniques as appropriate, variously including the following: *Automated exposure control *Adjustment of mA and/or kV according to patient size (this includes techniques or standardized protocols for targeted exams where dose is matched to indication/reason for exam; i.e. extremities or head) *Use of iterative reconstruction technique DLP: 740, 681 mGy-cm. FINDINGS: HEAD: There is no evidence of acute intracranial hemorrhage or territorial infarction. No abnormal mass effect or midline shift is seen. Lyons to white matter differentiation is well preserved. No extra-axial fluid collections are identified. The ventricles are normal in size. Brain parenchymal attenuation is normal. The osseous structures and soft tissues are normal. The mastoid air cells are well aerated. Mild mucosal thickening and retention cysts visible in the dependent left maxillary sinus. CERVICAL SPINE: No acute fracture is identified in the cervical spine. There is severe disc space narrowing with advanced degenerative endplate changes and a posterior subluxation at the C5-C6 level. Moderate disc space narrowing and posterior subluxation with a degenerative disc bulge and endplate spurring noted at the C4-C5 level. Multilevel hypertrophic facet arthropathy present with foraminal encroachment as well, more significant at the C2-C3 level on the right side. Small central disc protrusion at the C3-C4 level. The atlantoaxial articulation is normally maintained. Mild leftward cervical spinal curvature. The paraspinal soft tissues are normal. The lung apices are clear. CT/CT cervical spine wo IV con IMPRESSION: 1. No acute intracranial pathology. 2. No acute fracture or subluxation in the cervical spine. Moderate spondylosis at the C4-C5 and C5-C6 levels. Electronically signed by: Jose Wylie MD 03/27/2024 01:03 PM EDT
[2024-03-27 11:27] VITALS: BP 176/98; PULSE 79; RESP 19; TEMP 36.6; O2SAT 98; BMI 31.3
--- NOTE | 2024-03-27 11:29 | ED.GENADULT ---
HPI - General Adult General Chief complaint: Neck Pain/Injury Stated complaint: Back/neck injury Time Seen by Provider: 03/27/24 13:09 Source: patient and RN notes reviewed Mode of arrival: ambulatory Limitations: no limitations History of Present Illness ED Provider: Sydney Munoz PA-C HPI narrative: This is a 58-year-old male who presents emergency department with complaints of neck and back pain status post fall which occurred yesterday. Patient was playing basketball and was going up for a rebound and fell backwards, striking his posterior head on the pavement. He denies loss of consciousness. He states that he awoke this morning and felt as though his neck was very stiff. He denies taking any medications prior to his arrival Denies history of similar symptoms past. No numbness or tingling. No weakness. Denies severe headache, changes in vision nausea, vomiting or diarrhea. No chest pain or shortness of breath. He is not on blood thinners No other complaints or concerns at this time. MD complaint: Neck pain Onset (ago): day(s) Radiation: non-radiation Relieving factors: none Exacerbating factors: none Associated symptoms: denies other symptoms Treatments prior to arrival: none Related Data Previous Rx's ?Medication ?Instructions ?Recorded blood-glucose meter #1 ea 06/27/22 metformin 500 mg tablet 500 mg PO BIDWMEAL #60 tabs 06/27/22 cyclobenzaprine 10 mg tablet 10 mg PO Q8H #14 tabs 08/28/22 ketorolac 10 mg tablet 10 mg PO Q8H #14 tabs 08/28/22 cyclobenzaprine 5 mg tablet 5 mg PO TID PRN muscle spasm 7 11/20/22 days #21 tabs naproxen 500 mg tablet 500 mg PO BID 7 days #14 tabs 11/20/22 cyclobenzaprine 10 mg tablet 10 mg PO BEDTIME PRN muscle spasm 01/26/23 #7 tabs ketorolac 10 mg tablet 10 mg PO TID PRN pain 5 days #15 01/26/23 tabs lidocaine 5 % topical patch 1 patch topical DAILY PRN pain #15 01/26/23 ea methocarbamol 750 mg tablet 750 mg PO TID PRN muscle spasm #20 02/22/23 tabs naproxen 500 mg tablet 500 mg PO BID PRN pain #20 tabs 02/22/23 ibuprofen 600 mg tablet 600 mg PO Q6H PRN fever or pain 08/13/23 #30 tabs metformin 500 mg tablet 500 mg PO BID #60 tabs 10/21/23 naproxen 500 mg tablet 500 mg PO Q8-12H PRN pain (scale 02/07/24 score 1-3) #20 tabs acetaminophen 500 mg tablet 1,000 mg (2 x 500 mg) PO QID PRN 03/27/24 (Tylenol Extra Strength) pain #30 tabs cyclobenzaprine 10 mg tablet 10 mg PO TID PRN muscle spasm #14 03/27/24 tabs ibuprofen 600 mg tablet 600 mg PO Q6H PRN pain #14 tabs 03/27/24 Allergies Allergy/AdvReac Type Severity Reaction Status Date / Time No Known Allergies Allergy Verified 03/27/24 11:28 [No Known Allergies*] Review of Systems Review of Systems: Yes all other systems are reviewed and are negative Constitutional: Constitutional: Reports as per [facility] Social History Social History Alcohol intake: current Alcohol intake frequency: holidays/special occasions only Alcohol type: beer Advance Directives: No Advance Directives Information Provided: No Do you have a plan to hurt others: No Plan Physical Exam ED Vital Signs: Vital Signs - 24 hr 03/27/24 11:27 03/27/24 14:14 Temperature 98 F 98 F Pulse Rate 79 79 Respiratory Rate 19 19 Blood Pressure 176/98 H 176/98 H Pulse Oximetry 98 98 Oxygen Delivery Method Room Air Room Air BMI result Body Mass Index 31.3 Const General: cooperative, comfortable and no acute distress Orientation/consciousness: patient oriented x3 Limitations: no limitations [facility] Head: Yes normal to inspection, Yes normocephalic, Yes atraumatic, No Bryant's sign and No scalp tenderness Ears: hearing grossly normal bilaterally and TM's normal bilaterally (No hemotympanum) General nose exam: Normal external nose present Face and sinus: Yes normal facial exam Mouth: Normal oral and palatal mucosa present, oropharynx normal and moist mucous membranes Throat: Yes posterior oropharynx normal Eyes General: appearance normal, both eyes and all related structures Eyelids: Yes eyelids normal Conjunctivae: conjunctivae normal Sclerae: sclerae normal Pupils: Equal, round and reactive pupils present EOM: EOMs intact bilaterally Neck Other: No midline spine tenderness on examination, patient has bilateral trapezius, and paraspinous muscle spasms noted, limited range of motion secondary to pain. Able to touch chin to chest. Neck: Yes normal visual inspection, Yes full ROM and Yes no lymphadenopathy Lymphatic: no lymphadenopathy noted Chest Chest palpation & inspection: normal inspection of the chest Resp Effort & Inspection: normal respiratory effort and able to speak in complete sentences Auscultation: clear to auscultation bilaterally, no crackles, no rales, no rhonchi and no wheezes Cardio Rate: regular rate Rhythm: regular rhythm Heart sounds: S1 normal heart sound present and S2 normal heart sound present GI Inspection: Yes normal to inspection Skin General skin exam: no rashes or lesions noted Trauma: no lacerations or abrasions Wounds: no wounds Neuro General: patient oriented x3 and moves all extremities Cranial nerves: Yes Equal, round and reactive pupils present Extrem General: Yes normal to inspection Right upper extremity: normal to inspection Left upper extremity: normal to inspection Right lower extremity: normal to inspection Left lower extremity: normal to inspection Course Course Course Narrative: RME, this is a rapid medical exam performed by Ike Jansen please refer to primary provider for complete H&P- 58 year old male presents for evaluation of neck pain. He was playing basketball with his kids and fell last night. He has been complaining of a stiff neck ever since. His pain is worse with bending over. Denies any numbness or tingling. Plan for CT cervical spine Medical Decision Making Medical Decision Making MDM Narrative: This is a 58-year-old male who presents emergency department with complaints of neck pain status post fall which occurred yesterday. On arrival, patient hypertensive at 176/98, all other vital signs within normal limits. A head CT and C-spine CT were obtained prior to my assessment, he has no acute abnormalities seen. Discussed findings with patient. He has evidence of muscle spasms in his neck. Patient states that he does not have a ride home therefore he could not be medicated with muscle spasm medication. He would like to be discharged home with muscle relaxants. Given strict return precautions. Patient understands and agrees with plan. Patient stable for discharge. Differential Diagnosis Differential Diagnoses: The differential diagnosis associated with the presentation includes Spasmodic torticollis, fracture, strain, strain, contusion Admission/Observation Consideration of admission/observation: Escalation of care including admission/observation considered Radiology Impression Discussion of test interpretation with radiology: I have reviewed the radiologist's reading. Radiologist Impression: CT/CT head/brain wo IV con IMPRESSION: 1. No acute intracranial pathology. 2. No acute fracture or subluxation in the cervical spine. Moderate spondylosis at the C4-C5 and C5-C6 levels. Electronically signed by: Lizet Sarmiento MD 03/27/2024 01:03 PM EDT RP Dictated By: LIZET SARMIENTO MD Discharge Plan Discharge Clinical Impression: Cervical paraspinal muscle spasm, Cervical spondylosis Patient Disposition: Home, Self-Care Instructions: Muscle Spasm (ED), Neck Pain (ED) Additional Instructions: You were seen in the emergency department for neck pain. Your CT scan revealed something called spondylosis, this is normal wear and tear of your neck. You have no new injury from the fall that happened yesterday. Please drink plenty of fluids get plenty of rest. Gentle range of motion of your neck can also help with your symptoms. Take ibuprofen and or Tylenol as needed for pain and symptoms. Flexeril as a muscle relaxants, please be advised that this can cause drowsiness, do not drink alcohol or drive while taking this medication. If any new or worsening symptoms occur including but not limited to severe headache, dizziness, blurred vision, chest pain, shortness of breath, please return for re-evaluation. Prescriptions: New cyclobenzaprine 10 mg tablet 10 mg PO TID PRN (Reason: muscle spasm) Qty: 14 0RF ibuprofen 600 mg tablet 600 mg PO Q6H PRN (Reason: pain) Qty: 14 0RF acetaminophen [Tylenol Extra Strength] 500 mg tablet 1,000 mg PO QID PRN (Reason: pain) Qty: 30 0RF No Action metformin 500 mg tablet 500 mg PO BIDWMEAL Qty: 60 0RF (DME) blood-glucose meter Kit See Rx Instructions .Route Qty: 1 0RF Rx Instructions: As directed ketorolac 10 mg tablet 10 mg PO Q8H Qty: 14 0RF Rx Instructions: First dose given in the ER by IM and patient tolerated well cyclobenzaprine 10 mg tablet 10 mg PO Q8H Qty: 14 0RF cyclobenzaprine 5 mg tablet 5 mg PO TID PRN (Reason: muscle spasm) 7 Days Qty: 21 0RF naproxen 500 mg tablet 500 mg PO BID 7 Days Qty: 14 0RF cyclobenzaprine 10 mg tablet 10 mg PO BEDTIME PRN (Reason: muscle spasm) Qty: 7 0RF ketorolac 10 mg tablet 10 mg PO TID PRN (Reason: pain) 5 Days Qty: 15 0RF lidocaine 5 % adhesive patch,medicated 1 patch topical DAILY PRN (Reason: pain) Qty: 15 0RF Rx Instructions: leave on most painful area for up to 12 hrs naproxen 500 mg tablet 500 mg PO Q8-12H PRN (Reason: pain (scale score 1-3)) Qty: 20 0RF naproxen 500 mg tablet 500 mg PO BID PRN (Reason: pain) Qty: 20 0RF methocarbamol 750 mg tablet 750 mg PO TID PRN (Reason: muscle spasm) Qty: 20 0RF ibuprofen 600 mg tablet 600 mg PO Q6H PRN (Reason: fever or pain) Qty: 30 0RF metformin 500 mg tablet 500 mg PO BID Qty: 60 0RF Stand Alone Forms: Work/School Release Interventions: ED Discharge Assessment Last Done: 03/27/24 14:14 Discharge Date/Time: 03/27/24 14:15 Print Language: Djiboutian
[2024-03-27 14:14] VITALS: BP 176/98; PULSE 79; RESP 19; TEMP 36.6; O2SAT 98
== END 2024-03-27 14:15 | disposition home or self-care (01) ==
PROVIDERS: Emergency Provider Emergency Medicine
DX: M47.892 Other spondylosis, cervical region (principal); M62.838 Other muscle spasm; M54.2 Cervicalgia; R51.9 Headache, unspecified; Z79.899 Other long term (current) drug therapy
CPT/HCPCS: 70450; 72125; 99282; 99284

== ENCOUNTER 2024-05-22 11:48 | Emergency (ER) | payer SELFPAY ==
[2024-05-22 11:51] VITALS: BP 139/81; PULSE 94; RESP 16; TEMP 36.8; O2SAT 98; BMI 32.1
--- NOTE | 2024-05-22 11:52 | ED_ITS ---
HPI - URI/Sore Throat General Chief Complaint: General Medical Stated Complaint: Body aches Time Seen by Provider: 05/22/24 12:03 Source: patient Mode of arrival: ambulatory Limitations: no limitations History of Present Illness ED Provider: David Hodge HPI Narrative: 58 yold male with pmh of DM and COVID presents to ED for generalized body aches. Patient states generalized body aches for the past 3 days. Patient states pain in joints. Patient denies any rash, fever, chills, night sweats, coughing, chest pain, shortness of breath, or any weight loss. Patient denies any swelling or mass on neck. Patient denies any recent trauma. Patient denies any recent strenuous activity or running for many miles. Patient denies any abdominal pain, nausea, or vomiting. Related Data Previous Rx's ?Medication ?Instructions ?Recorded blood-glucose meter #1 ea 06/27/22 metformin 500 mg tablet 500 mg PO BIDWMEAL #60 tabs 06/27/22 cyclobenzaprine 10 mg tablet 10 mg PO Q8H #14 tabs 08/28/22 ketorolac 10 mg tablet 10 mg PO Q8H #14 tabs 08/28/22 cyclobenzaprine 5 mg tablet 5 mg PO TID PRN muscle spasm 7 11/20/22 days #21 tabs naproxen 500 mg tablet 500 mg PO BID 7 days #14 tabs 11/20/22 cyclobenzaprine 10 mg tablet 10 mg PO BEDTIME PRN muscle spasm 01/26/23 #7 tabs ketorolac 10 mg tablet 10 mg PO TID PRN pain 5 days #15 01/26/23 tabs lidocaine 5 % topical patch 1 patch topical DAILY PRN pain #15 01/26/23 ea methocarbamol 750 mg tablet 750 mg PO TID PRN muscle spasm #20 02/22/23 tabs naproxen 500 mg tablet 500 mg PO BID PRN pain #20 tabs 02/22/23 ibuprofen 600 mg tablet 600 mg PO Q6H PRN fever or pain 08/13/23 #30 tabs metformin 500 mg tablet 500 mg PO BID #60 tabs 10/21/23 naproxen 500 mg tablet 500 mg PO Q8-12H PRN pain (scale 02/07/24 score 1-3) #20 tabs acetaminophen 500 mg tablet 1,000 mg (2 x 500 mg) PO QID PRN 03/27/24 (Tylenol Extra Strength) pain #30 tabs cyclobenzaprine 10 mg tablet 10 mg PO TID PRN muscle spasm #14 03/27/24 tabs ibuprofen 600 mg tablet 600 mg PO Q6H PRN pain #14 tabs 03/27/24 metformin 500 mg tablet 500 mg PO BID 30 days #60 tabs 05/22/24 naproxen 500 mg tablet 500 mg PO BID PRN pain 7 days #14 05/22/24 tabs Allergies Allergy/AdvReac Type Severity Reaction Status Date / Time No Known Allergies Allergy Verified 05/22/24 11:53 [No Known Allergies*] Review of Systems Review of Systems: Generalized boydaches Yes all other systems are reviewed and are negative [facility] Social History Social History Alcohol intake: current Alcohol intake frequency: holidays/special occasions only Alcohol type: beer Advance Directives: No Advance Directives Information Provided: No Do you have a plan to hurt others: No Plan Physical Exam Vital Signs: Vital Signs: Last Vital Signs Temp 98.2 F 05/22/24 15:08 Pulse 73 05/22/24 15:08 Resp 16 05/22/24 15:08 BP 140/85 H 05/22/24 15:08 Pulse Ox 94 05/22/24 15:08 O2 Del Method Room Air 05/22/24 15:08 BMI result Body Mass Index 32.1 Const: General: cooperative, healthy appearing, comfortable, no acute distress, well developed, alert, awake and Physically active Orientation/consciousness: patient oriented x3 HEENT: Head: Yes normal to inspection, Yes No palpable skull fracture present, Yes normocephalic, Yes atraumatic and No abrasion Eyes: General: appearance normal, both eyes and all related structures Neck: Neck: Yes normal visual inspection, Yes full ROM, Yes no lymphadenopathy, Yes no meningeal signs, Yes trachea midline, Yes supple, No anterior neck swelling and No tender Chest: Chest palpation & inspection: normal inspection of the chest and normal palpation of entire chest wall Resp: Effort & Inspection: normal respiratory effort and able to speak in complete sentences Auscultation: clear to auscultation bilaterally Cardio: Jugular venous distension: no JVD Heart sounds: S1 normal heart sound present and S2 normal heart sound present GI: Inspection: Yes normal to inspection Palpation (GI): Soft to palpation, not firm, nontender, no guarding and not rigid : General: No CVA tenderness and Yes no CVA tenderness Back/Spine/Pelvis: Back: no CVA tenderness, No CVA tenderness and No back ten derness Skin: General skin exam: no rashes or lesions noted, elasticity normal and turgor normal Neuro: General: patient oriented x3, gait normal, tone normal, moves all extremities, Normal light touch and pain sensation, no meningeal signs, no focal motor deficits, CN's II-XI intact bilaterally and normal sensation to monofilament Extrem: General: Yes normal to inspection, Yes full ROM and Yes capillary refill normal Psych: Appearance: grossly normal, well kempt and not disheveled Course Course Course Narrative: This is a Rapid Medical Exam performed in triage by Linda Sims PA-C. Full HPI, ROS and PE to be performed by primary ED provider. 58 yo M w/pmhx DM presenting to the ED c/o diffuse, myalgias, generalized weakness and lethargy. denies cough, travel, sick contacts, sore throat, ear pain PE: nontoxic appearing, respirations unlabored. ambulating with steady gait Plan: viral testing Medical Decision Making Medical Decision Making [facility] Narrative: 58-year-old male presents to ED for generalized body aches without any URI symptoms. Patient denies any trauma. Patient denies any polydipsia or polyuria. Fingerstick 287. SARs swab ordered. Patient well-appearing. 2:50pm; patient's COVID, influenza, and RSV are negative. Patient informed to follow up with primary care provider. No need for further evaluation. Not suspecting rhabdomyolysis, DKA, electrolyte deficiency, kidney failure, or any cardiac etiologies. No need for any blood work. Patient will be given another script of metformin. Patient states he ran out metformin. Patient is a known diabetic. Patient educated on worrisome signs and return to ED immediatley Differential Diagnosis Differential Diagnoses: The differential diagnosis associated with the presentation includes (URI, COVID, RSV, influenza, fibromyalgia,) Admission/Observation Consideration of admission/observation: Escalation of care including admission/observation considered Lab Data [facility] Lab Attestation statement: I reviewed the patient's lab results. Labs: Lab Results 05/22/24 05/22/24 Range/Units 11:59 12:11 POC Glucose 287 H (60-115) mg/dL Influenza Type A (PCR) NEGATIVE (Negative) Influenza Type B (PCR) NEGATIVE (Negative) RSV RNA Qual (PCR) NEGATIVE (Negative) SARS-CoV-2 RNA (RT-PCR) NEGATIVE (Negative) Independent Historian Clinical information obtained from an independent historian. History obtained from or confirmed by: Other (Patient) External Record Review External record reviewed: Other (Prior visits) Prescription Management I considered prescription management with: Pain Medication Discharge Plan Discharge Clinical Impression: Myalgia, Medication refill Patient Disposition: Home, Self-Care Instructions: Musculoskeletal Pain (ED), Medicine Refill (ED) Additional Instructions: Recommend follow-up with your primary care provider. Return to the ED immediately for any night sweats, weight loss, chest pain, shortness of breath, coughing up blood, fever, chills, increased urinary frequency, increased thirst, worsening body aches, cramping, tingling, numbness, abdominal pain, nausea, vom itting, or any other concerning symptoms. Prescriptions: New naproxen 500 mg tablet 500 mg PO BID PRN (Reason: pain) 7 Days Qty: 14 0RF metformin 500 mg tablet 500 mg PO BID 30 Days Qty: 60 0RF No Action metformin 500 mg tablet 500 mg PO BIDWMEAL Qty: 60 0RF (DME) blood-glucose meter Kit See Rx Instructions .Route Qty: 1 0RF Rx Instructions: As directed ketorolac 10 mg tablet 10 mg PO Q8H Qty: 14 0RF Rx Instructions: First dose given in the ER by IM and patient tolerated well cyclobenzaprine 10 mg tablet 10 mg PO Q8H Qty: 14 0RF cyclobenzaprine 5 mg tablet 5 mg PO TID PRN (Reason: muscle spasm) 7 Days Qty: 21 0RF naproxen 500 mg tablet 500 mg PO BID 7 Days Qty: 14 0RF cyclobenzaprine 10 mg tablet 10 mg PO BEDTIME PRN (Reason: muscle spasm) Qty: 7 0RF ketorolac 10 mg tablet 10 mg PO TID PRN (Reason: pain) 5 Days Qty: 15 0RF lidocaine 5 % adhesive patch,medicated 1 patch topical DAILY PRN (Reason: pain) Qty: 15 0RF Rx Instructions: leave on most painful area for up to 12 hrs naproxen 500 mg tablet 500 mg PO Q8-12H PRN (Reason: pain (scale score 1-3)) Qty: 20 0RF naproxen 500 mg tablet 500 mg PO BID PRN (Reason: pain) Qty: 20 0RF methocarbamol 750 mg tablet 750 mg PO TID PRN (Reason: muscle spasm) Qty: 20 0RF ibuprofen 600 mg tablet 600 mg PO Q6H PRN (Reason: fever or pain) Qty: 30 0RF metformin 500 mg tablet 500 mg PO BID Qty: 60 0RF cyclobenzaprine 10 mg tablet 10 mg PO TID PRN (Reason: muscle spasm) Qty: 14 0RF ibuprofen 600 mg tablet 600 mg PO Q6H PRN (Reason: pain) Qty: 14 0RF acetaminophen [Tylenol Extra Strength] 500 mg tablet 1,000 mg PO QID PRN (Reason: pain) Qty: 30 0RF Stand Alone Forms: Work/School Release Interventions: ED Discharge Assessment Last Done: 05/22/24 15:08 Discharge Date/Time: 05/22/24 15:08 Print Language: Azeri
[2024-05-22 12:14] LABS: Glucose, Whole Blood 287 mg/dL (60-115)
[2024-05-22 12:40] LABS: Influenza A PCR NEGATIVE (Negative); Influenza B PCR NEGATIVE (Negative); Resp Syncy Virus RNA Qual PCR NEGATIVE (Negative); SARS COV2 PCR INHOUSE NEGATIVE (Negative)
[2024-05-22 14:25] VITALS: BP 140/85; PULSE 73; RESP 16; TEMP 36.8; O2SAT 94
[2024-05-22 15:08] VITALS: BP 140/85; PULSE 73; RESP 16; TEMP 36.8; O2SAT 94
== END 2024-05-22 15:08 | disposition home or self-care (01) ==
PROVIDERS: Emergency Medicine; Physician Assistant; Emergency Provider Emergency Medicine
DX: J02.9 Acute pharyngitis, unspecified (principal); M79.10 Myalgia, unspecified site; Z79.899 Other long term (current) drug therapy; Z76.0 Encounter for issue of repeat prescription; Z03.818 Encounter for observation for suspected exposure to other biological agents ruled out
CPT/HCPCS: 0241U; 82947; 99283

== ENCOUNTER 2025-04-18 10:39 | Emergency (ER) | payer SELFPAY ==
[2025-04-18 10:43] VITALS: BP 173/90; PULSE 78; RESP 20; O2SAT 93; BMI 30.2
--- NOTE | 2025-04-18 10:43 | ED_ITS ---
HPI - Ear Problem General Chief complaint: Ear Problems Stated complaint: Loss of hearing R ear Time Seen by Provider: 04/18/25 10:53 Source: patient and RN notes reviewed Mode of arrival: ambulatory Limitations: no limitations History of Present Illness ED Provider: Sydney Dietrich PA-C HPI Narrative: This is a [id number]-male, with a PMHx of DM, who presents to the ER with a complaint of right ear decreased hearing. Reports that 3 days ago he used ear plugs in his right ear and took them out and could no longer hear. No pain. No drainage. No fevers, chills, sore throat, CP/SOB. Denies trying any OTC medications. No other complaints or concerns at this time. MD Complaint: decreased hearing Location: right ear Duration: constant Relieving factors: nothing Exacerbating factors: nothing Discharge from ear: no Treatment prior to arrival: none Related Data Previous Rx's ?Medication ?Instructions ?Recorded blood-glucose meter #1 ea 06/27/22 metformin 500 mg tablet 500 mg PO BIDWMEAL #60 tabs 06/27/22 cyclobenzaprine 10 mg tablet 10 mg PO Q8H #14 tabs 11/14 ketorolac 10 mg tablet 10 mg PO Q8H #14 tabs cyclobenzaprine 5 mg tablet 5 mg PO TID PRN muscle spa sm 7 11/20/22 days #21 tabs naproxen 500 mg tablet 500 mg PO BID 7 days #14 tab s 11/20/22 cyclobenzaprine 10 mg tablet 10 mg PO BEDTIME PRN musc le spasm 01/26/23 #7 tabs ketorolac 10 mg tablet 10 mg PO TID PRN pain 5 days #15 01/26/23 tabs lidocaine 5 % topical patch 1 patch topical DAILY PRN pain #15 01/26/23 ea methocarbamol 750 mg tablet 750 mg PO TID PRN muscle s pasm #20 02/22/23 tabs naproxen 500 mg tablet 500 mg PO BID PRN pain #20 t abs 02/22/23 ibuprofen 600 mg tablet 600 mg PO Q6H PRN fever or p ain 08/13/23 #30 tabs metformin 500 mg tablet 500 mg PO BID #60 tabs 10/20 naproxen 500 mg tablet 500 mg PO Q8-12H PRN pain (s mando 02/07/24 score 1-3) #20 tabs acetaminophen 500 mg tablet 1,000 mg (2 x 500 mg) PO Q ID PRN 03/27/24 (Tylenol Extra Strength) pain #30 tabs cyclobenzaprine 10 mg tablet 10 mg PO TID PRN muscle s pasm #14 03/27/24 tabs ibuprofen 600 mg tablet 600 mg PO Q6H PRN pain #14 t abs 03/27/24 metformin 500 mg tablet 500 mg PO BID 30 days #60 ta bs 05/22/24 naproxen 500 mg tablet 500 mg PO BID PRN pain 7 day s #14 05/22/24 tabs amoxicillin 875 mg-potassium 1 tab PO BID 7 days #14 t abs 04/18/25 clavulanate 125 mg tablet ciprofloxacin 0.3 %-dexamethasone 4 drp otic (ears) BI D 7 days #7.5 04/18/25 0.1 % ear drops,suspension mL Allergies Allergy/AdvReac Type Severity Reaction Status Date / Time No Known Allergies (No Known Allergy Verified 04/18/25 10:44 Allergies*) Review of Systems Review of Systems: Constitutional : No Fever, No Chills ENT/Mouth : No sore throat, No Rhinorrhea Eyes: No Eye Pain, No Swelling, No Redness Cardiovascular : No Chest Pain, No SOB Respiratory : No Cough, No Sputum Gastrointestinal : No Nausea, No Vomiting, No Diarrhea, No abdominal Pain Genitourinary : No Dysuria, No Hematuria Musculoskeletal : No joint pain, No Myalgias, No Joint Swelling Skin : No Skin Lesion Neuro : No Weakness, No Numbness, No Headache All other systems reviewed and are negative Yes all other systems are reviewed and are negative Constitutional: Constitutional: Reports as per [facility] Social History Social History Alcohol intake: current Alcohol intake frequency: holidays/special occasions only Alcohol type: beer Advance Directives: No Advance Directives Information Provided: Yes Do you have a plan to hurt others: No Plan Physical Exam Exam: Exam: General: Awake, alert, and oriented X3. No acute distress. HEENT: R TM is exudative with canal narrowing and slight erythema noted, L TM unremarkable. No mastoid ttp. Oral pharynx clear. CVS: Normal heart rate and rhythm. Pulses normal. Respiratory: No respiratory distress Skin: Warm, dry, no rashes noted to exposed skin. Normal skin color. Normal skin turgor. Extremities: Normal to inspection Neuro: Oriented X 3. No motor deficit. No sensory deficit. Vital Signs: Vital Signs: Last Vital Signs Temp 98.3 F 04/18/25 11:39 Pulse 78 04/18/25 11:39 Resp 20 04/18/25 11:39 BP 173/90 H 04/18/25 11:39 Pulse Ox 93 04/18/25 11:39 O2 Del Method Room Air 04/18/25 11:39 BMI result Body Mass Index 30.2 Medical Decision Making Medical Decision Making [facility] Narrative: This is a [id number]-male, with a PMHx of DM, who presents to the ER with a complaint of right ear decreased hearing. Reports that 3 days ago he used ear plugs in his right ear and took them out and could no longer hear. BP eleavated - he has no chest pain, shortness of breath, dizziness, blurred vision. R TM with exudates noted, canal edematous. Will treat as a OM/OE with oral and topical antibiotics. Advised to return with any new or worsening symptoms. Pt understands and agrees with plan. Differential Diagnosis Differential Diagnoses: The differential diagnosis associated with the presentation includes OE, OM, TM perforation, otalgia, cerumen impaction. Discharge Plan Discharge Clinical Impression: Otitis media Patient Disposition: Home, Self-Care Instructions: Ear Infection (ED) Additional Instructions: You were seen in the emergency department due to right ear blockage. You have an ear infection in your right ear canal. Please take prescribed antibiotic as directed, finish the entire course even if your symptoms improve. I am also prescribing you ear drops, please use as prescribed. Instill 4 drops in your ear canal and lay on your side for 20 minutes to ensure that the ear drops fully get into your ear canal. If any new or worsening symptoms occur including but not limited to severe ear pain, high fevers, please return for re-evaluation. Prescriptions: New amoxicillin-pot clavulanate 875-125 mg tablet 1 tab PO BID 7 Days Qty: 14 0RF ciprofloxacin-dexamethasone 0.3-0.1 % drops,suspension 4 drp otic (ears) BID 7 Days Qty: 7.5 0RF No Action metformin 500 mg tablet 500 mg PO BIDWMEAL Qty: 60 0RF (DME) blood-glucose meter Kit See Rx Instructions .Route Qty: 1 0RF Rx Instructions: As directed ketorolac 10 mg tablet 10 mg PO Q8H Qty: 14 0RF Rx Instructions: First dose given in the ER by IM and patient tolerated well cyclobenzaprine 10 mg tablet 10 mg PO Q8H Qty: 14 0RF cyclobenzaprine 5 mg tablet 5 mg PO TID PRN (Reason: muscle spasm) 7 Days Qty: 21 0RF naproxen 500 mg tablet 500 mg PO BID 7 Days Qty: 14 0RF cyclobenzaprine 10 mg tablet 10 mg PO BEDTIME PRN (Reason: muscle spasm) Qty: 7 0RF ketorolac 10 mg tablet 10 mg PO TID PRN (Reason: pain) 5 Days Qty: 15 0RF lidocaine 5 % adhesive patch,medicated 1 patch topical DAILY PRN (Reason: pain) Qty: 15 0RF Rx Instructions: leave on most painful area for up to 12 hrs naproxen 500 mg tablet 500 mg PO Q8-12H PRN (Reason: pain (scale score 1-3)) Qty: 20 0RF naproxen 500 mg tablet 500 mg PO BID PRN (Reason: pain) Qty: 20 0RF methocarbamol 750 mg tablet 750 mg PO TID PRN (Reason: muscle spasm) Qty: 20 0RF ibuprofen 600 mg tablet 600 mg PO Q6H PRN (Reason: fever or pain) Qty: 30 0RF metformin 500 mg tablet 500 mg PO BID Qty: 60 0RF cyclobenzaprine 10 mg tablet 10 mg PO TID PRN (Reason: muscle spasm) Qty: 14 0RF ibuprofen 600 mg tablet 600 mg PO Q6H PRN (Reason: pain) Qty: 14 0RF acetaminophen [Tylenol Extra Strength] 500 mg tablet 1,000 mg PO QID PRN (Reason: pain) Qty: 30 0RF naproxen 500 mg tablet 500 mg PO BID PRN (Reason: pain) 7 Days Qty: 14 0RF metformin 500 mg tablet 500 mg PO BID 30 Days Qty: 60 0RF Stand Alone Forms: Work/School Release Interventions: ED Discharge Assessment Last Done: 04/18/25 11:39 Discharge Date/Time: 04/18/25 11:39 Print Language: Faroese
[2025-04-18 11:39] VITALS: BP 173/90; PULSE 78; RESP 20; TEMP 36.8; O2SAT 93
== END 2025-04-18 11:39 | disposition home or self-care (01) ==
PROVIDERS: Emergency Provider Emergency Medicine
DX: H66.91 Otitis media, unspecified, right ear (principal); H91.91 Unspecified hearing loss, right ear; Z79.899 Other long term (current) drug therapy
CPT/HCPCS: 99282; 99283